=== PATIENT | male | born 1960 | race Caucasian/White ===

== ENCOUNTER 2024-11-04 09:26 | Emergency (ER) | payer OTHER, SELFPAY ==
[2024-11-04 09:40] VITALS: BP 171/80; PULSE 58; RESP 16; TEMP 36.4; O2SAT 97
--- NOTE | 2024-11-04 09:58 | ED_ITS ---
HPI - URI/Sore Throat General Chief Complaint: Upper Respiratory Infection Stated Complaint: sinus infection Time Seen by Provider: 11/04/24 09:59 Source: patient, RN notes reviewed and old records reviewed Mode of arrival: ambulatory Limitations: no limitations History of Present Illness HPI Narrative: 64 year old male who presents to [facility] care with complaints of sinus pressure, nasal drainage,some sore throat, stuffy nose, frontal headache and slight cough for about one week with increase for the past 3-4 days.. Patient reports that he had similar symptom about a month ago and did seem to get better and then symptoms seemed to reoccur. Patient reports no known fevers, chills or sweats, denies any shortness of breath,body aches, no nausea or any vomiting or diarrhea episodes, Patient has taken some Vitamin C daily. MD elicited complaint: sore throat, rhinorrhea, nasal congestion and sinus pain Onset (ago): week(s) (week with increase for past 3-4 days, symptoms also 1 month ago that seemed to get better then reoccurred.) Severity: moderate Able to tolerate fluids by mouth: Yes Treatments prior to arrival: other (Vitamin C) Related Data Home Medications ?Medication ?Instructions ?Recorded ?Confirmed ?Last Taken ?Type atorvastatin 20 mg tablet mg 11/04/24 Unknown History hydrochlorothiazide 25 mg tablet mg 11/04/24 Unknown History metoprolol succinate 100 mg mg PO 11/04/24 Unknown History tablet,extended release 24 hr olmesartan 40 mg tablet mg 11/04/24 Unknown History testosterone cypionate 200 mg/mL mg 11/04/24 Unknown History intramuscular oil Allergies Allergy/AdvReac Type Severity Reaction Status Date / Time No Known Allergies Allergy Verified 11/04/24 09:55 Review of Systems Review of Systems: CONSTITUTIONAL: Denies malaise, chills, sweats, or fever. EYES: Denies visual changes, redness, or discharge. ENT: Reports rhinorrhea, congestion, sinus pain,no otalgia and positive for sore throat. CARDIOVASCULAR: Denies chest pain, palpitations, or edema. RESPIRATORY: Reports cough.? Denies dyspnea. GASTROINTESTINAL: Denies abdominal pain, nausea, vomiting, diarrhea SKIN: Denies rash or itching. MUSCULOSKELETAL: Denies myalgia. NEUROLOGIC: Frontal headache. All systems reviewed & are unremarkable except as noted in HPI and below PMFSH Past Medical History Medical History (Updated 11/05/24 @ 09:39 by Selam Decker NP) Hyperlipidemia Hypertension Surgical History Surgical History (Updated 11/05/24 @ 09:36 by Selam Decker NP) No history of previous surgery Family History Family History (Updated 11/05/24 @ 09:36 by Selam Decker NP) Other Acute myocardial infarction Heart disease Hypertension Social History Social History (Updated 11/05/24 @ 09:36 by Selam Decker NP) Smoking status: Never smoker Alcohol intake: current Alcohol use details: social Substance use type: does not use Living arrangements: with family Gender identity (if verbalized by the patient): Male Comments At time of signature, agree with nursing past medical, surgical, social and family history. There is no relevant family history pertinent to the presenting complaint Exam Narrative: GENERAL: Well-appearing, well-nourished, and in no acute distress. HEAD: Normocephalic EYES: PERRLA, conjunctivae clear ENT: Nares clear, turbinates edematous and erythematous, clear discharge, sinus pressure, frontal headache. Mucous membranes moist. TM pearly juárez with dull light reflex bilaterally; no tragal tenderness. Oropharynx erythematous without lesions. Tonsils not enlarged and without exudate, no drooling, no hoarseness, no trismus, uvula midline.post nasal drainage NECK: Supple. No lymphadenopathy CHEST: Clear to auscultation, breath sounds equal. No wheezing, rhonchi, rales, or stridor. No respiratory distress, speaks in full sentences.dry cough, SAO2 97% on room air HEART: Regular rate and rhythm. No murmur heard. SKIN: Warm, dry, no rash. NEURO: Alert and oriented x3. PSYCH: Normal mood and affect Course Course Emergency Course: Patient is aware of diagnosis, understands and agrees to treatment plan.? Anticipatory guidance given.? Patient agrees to follow-up as directed and is aware of reasons to seek care at the emergency department. Portions of this record may have been created with voice recognition software Level of Care: Express Care Visit Vital Signs Vital signs: Vital Signs Temperature 36.4 C 11/04/24 09:40 Pulse Rate 58 L 11/04/24 09:40 Respiratory Rate 16 11/04/24 09:40 Blood Pressure 171/80 H 11/04/24 09:40 Pulse Oximetry 97 11/04/24 09:40 Oxygen Delivery Room Air 11/04/24 09:40 Temperature 36.4 C 11/04/24 09:40 Pulse Rate 58 L 11/04/24 09:40 Respiratory Rate 16 11/04/24 09:40 Blood Pressure 171/80 H 11/04/24 09:40 Pulse Oximetry 97 11/04/24 09:40 Oxygen Delivery Room Air 11/04/24 09:40 Reviewed MDM - URI/Sore Throat MDM Narrative Medical decision making narrative: Differential diagnosis considered: Dove virus, strep pharyngitis, allergic rhinitis, upper respiratory tract infection, sinusitis, rhinosinusitis, nasopharyngitis. viral pharyngitis, otitis media, otitis externa, pneumonia, bronchitis, viral cough syndrome, viral syndrome, and influenza.? Exam findings show no acute concerns or changes; patient is non-toxic appearing and is in no distress.? Patient is appropriate for outpatient treatment and follow-up. Differential Diagnosis Differential diagnosis: Likely upper respiratory infection, sinusitis, viral infection, pharyngitis and other (strep pharyngitis) Medical Records Attestation: I reviewed the patient's medical records. Lab Data Attestation: I reviewed the patient's lab results. Lab results narrative: strep screen negative no culture sent per patient request Labs: Lab Results 11/04/24 Range/Units 10:15 POC Grp A Strep Screen Negative (Negative) Critical Care Time Critical Care Time Critical Care Time: No Discharge Plan Discharge Clinical Impression: Sinusitis Qualifiers: Sinusitis location: pansinusitis Chronicity: acute Recurrence: not specified as recurrent Qualified Code(s): J01.40 - Acute pansinusitis, unspecified Patient Disposition: Home, Self-Care Condition: Stable Instructions: Antibiotic Form, Sinusitis (ED) Additional Instructions: Increase fluids especially juices and water [id number] cough and cold medicine of your choice for your symptoms Zyrtec Claritin or Latesha daily include Coricidin brand decongestant heat to the face 20-30 minutes 4-6 times a day for pain Salt water gargles, throat lozenges or throat sprays as desired Antibiotic as directed--finished the medication Tylenol or ibuprofen for any fever pain If your symptoms persist, change or worsen significantly before you can contact your personal physician then please, without delay, go to the emergency department for further evaluation. Follow-up with PCP in 7-10 days or sooner if needed Follow up with PCP soon in regards to your blood pressure which is elevated above threshold for referral. Blood pressure above 120/80 may indicate pre- hypertension. 171/80 Patient Language: Slovak Prescriptions: New amoxicillin-pot clavulanate 875-125 mg tablet 1 tablet PO Q12H Qty: 20 0RF Rx Instructions: recommend probiotic or eat activa Yogurt while taking this medication No Action atorvastatin 20 mg tablet metoprolol succinate 100 mg tablet extended release 24 hr PO hydrochlorothiazide 25 mg tablet testosterone cypionate 200 mg/mL oil olmesartan 40 mg tablet Follow-up/Referrals: Cristina,MD Emanuel [Primary Care Provider] - Time of Disposition: 10:25 Quality [place] Coma Scale Eyes: Open Verbal: Oriented and Alert Motor: Follows Commands Christopher Coma Total Score: 15
[2024-11-04 10:17] LABS: EDSTREPNEGPOS1 Negative (Negative)
--- OUTSIDE RECORDS SUMMARY | 2024-11-04 10:31 | XMS_ITS ---
Care Plan - [facility] Created on: November 04, 2024 VINAY CLARKE : 1960 Sex: Male Author Organization [facility] Address [address] [place] [address] Phone Care Team Providers Care Position Description Manager Name Role Phone ALEXA MARTINEZ MD Primary Care Provider [phone]
--- OUTSIDE RECORDS SUMMARY | 2024-11-04 10:31 | XMS_ITS | Clinical Summary ---
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 ALEXA MARTINEZ MD Active Last Documented On 03/07/2020 8:46AM ; [facility] Note: Unchanged - using cpap [facility] Reported Family History of Heart Disease 12/17/2012 ALEXA MARTINEZ MD Inactive Last Documented On 03/24/2014 4:02PM ; [facility] Note: Unchanged Reported Family History of Cancer 08/20/2012 ALEXA MARTINEZ MD Inactive Last Documented On 03/24/2014 4:02PM ; [facility] Note: Unchanged Essential Hypertension Benign 12/18/2011 ALEXA MARTINEZ MD Active Last Documented On 4 7:30AM ; [facility] Plan of Treatment Pending Tests Order Diagnosis Results Due Ordering P rovider Outside Supplies CPAP MACHINE Obstructive sle ep apnea (adult) (pediatric) 02/06/23 ALEXA MARTINEZ MD Last Documented On 3 8:35AM ; [facility] Outside Supplies CPAP SUPPLIES Obstructive sle ep apnea (adult) (pediatric) 02/06/23 ALEXA MARTINEZ MD Last Documented On 3 8:35AM ; [facility] Outside Supplies Cologuard Encounter for s creening for malignant neoplasm of colon 08/21/23 ALEXA MARTINEZ MD Last Documented On 4 1:33PM ; [facility] Lab LIPID PANEL 02/18/24 ALEXA BOWSER MD Last Documented On 4 9:26AM ; [facility] Lab CMP 02/18/24 ALEXA Wagoner MD Last Documented On 4 9:26AM ; [facility] Lab CBC WITH DIFF 02/18/24 ALEXA CHOWDHURY MD Last Documented On 4 9:26AM ; [facility] Instructions to patient Recommend diet and exercise at least 30 min three times per week Last Documented On 2 8:58AM ; [facility] Assessments Includes: Assessments from this encounter Findings - Benign essential hypertension [I10 - Essential (primary) hypertension] - Last Documented On 09/11/2021 2:36PM ; [facility] - 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 - Obstructive sleep apnea (adult) (pediatric)] - Last Documented On 09/11/2021 2:36PM ; [facility] - Hypercholesterolemia [E78.00 - Pure hypercholesterolemia, unspecified] - Last Documented On 09/11/2021 2:36PM ; [facility] - 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] - Last Documented On 09/11/2021 2:36PM ; [facility] - Male erectile disorder [F52.21 - Male erectile disorder] - Last Documented On 09/11/2021 2:36PM ; [facility] Instructions Includes: Instructions from this encounter Instructions to patient Recommend diet and exercise at least 30 min three times per week Last Documented On 8:58AM ; [facility] Medical Equipment - Implanted Devices Includes: Current Devices No Medical Equipment Recorded Medications Includes: Medications discussed during this encounter and other current Medications New / Renewed during this visit ALEXA MARTINEZ MD on 09/11/2021 Testosterone Cypionate 100 MG/ML Intramuscular Solution Provider: ALEXA CHOWDHURY MD 280 day supply: 10 mL, 0 refills Diagnosis: Essential (primary) hypertension 1/2 ml injection every 2 wee ks IM, test 1 week after the second dose given and call for instructions on dose adjustments Pharmacy: [address], [id number] - Last Documented On 09/10/2022 9:20AM By DARLIN MARTINEZ MD ; [facility] Olmesartan Medoxomil 40 MG Oral Tablet Provider: ALEXA MARTINEZ MD 90 day supply: 90 tablet, 1 refills Diagnosis: Essential (primary) hypertension One tablet daily Pharmacy: [address], [id number] - Last Documented On 04/01/2022 8:46PM By DARLIN MARTINEZ MD ; [facility] Metoprolol Succinate ER 100 MG Oral Tablet Extended Release 24 Hour Provider: ALEXA MARTINEZ MD day supply: 180 tablet, 1 refills Diagnosis: Essential (primary) hypertension 2 once a day Pharmacy: [address], [id number] - Last Documented On 03/16/2022 3:28AM By DARLIN MARTINEZ MD ; [facility] hydroCHLOROthiazide 25 MG Or al Tablet Provider: ALEXA MARTINEZ MD 90 day supply: 90 tablet, 1 refills Diagnosis: Essential (primary) hypertension One tablet daily Pharmacy: [address], [id number] - Last Documented On 04/01/2022 8:47PM By DARLIN MARTINEZ MD ; [facility] Current Medications (continue as prescribed) Tlando 112.5 MG Oral Capsule 09/06/2022 Provider: Diagnosis: 2 CAPSULES BID Last Documented On 09/10/2022 9:37AM By Ave MCKEON ; [facility] [place] Cialis 10 MG Oral Tablet 03/13/2021 Provider: DARLIN MARTINEZ MD Diagnosis: Male erectile di sorder 1 tab 30-45 min prior to raissa ired effect, max is 20 mg in 36 hour period Last Documented On 03/13/2021 9:48AM By DARLIN MARTINEZ MD ; [facility] Past Medications on file Metoprolol Succinate ER 100 MG Oral Tablet Extended Release 24 Hour 01/27/2024 - 07/25/2024 Provider: ALEXA MARTINEZ MD Diagnosis: Essential (prima ry) hypertension TAKE 2 TABLETS BY MOUTH EVERY DAY Last Documented On 01/27/2024 7:59AM By DARLIN MARTINEZ MD ; [facility] Atorvastatin Calcium 20 MG Oral Tablet 2023 - 03/24/2024 Provider: ALEXA MARTINEZ MD Diagnosis: Pure hypercholesterolemia, unspecified TAKE 1 TABLET BY MOUTH EVERY DAY Last Documented On 2023 1:53PM By DARLIN MARTINEZ MD ; [facility] hydroCHLOROthiazide 25 MG Oral Tablet 2023 - 03/24/2024 Provider: ALEXA MARTINEZ MD Diagnosis: Essential (prima ry) hypertension TAKE 1 TABLET BY MOUTH EVERY DAY Last Documented On 2023 2:09PM By DARLIN MARTINEZ MD ; [facility] Olmesartan Medoxomil 40 MG Oral Tablet 2023 - 03/24/2024 Provider: ALEXA MARTINEZ MD Diagnosis: Essential (prima ry) hypertension TAKE 1 TABLET BY MOUTH EVERY DAY Last Documented On 2023 2:09PM By DARLIN MARTINEZ MD ; [facility] Medications Administered Includes: Administered Medications from this encounter No Administered Medications Recorded Vital Signs Includes: Vital Signs from this encounter Vital Name 09/11/2021 08:33A Blood Pressure Sitting L 152/90 BP Cuff Size Large Pulse Rate-Sitting (bpm) 60 Pulse Rhythm Regular Height (in) 66 Weight (lb) 253 Body Mass Index (kg/m2) 40.8 Body Surface Area (m2) 2.2 Oxygen Saturation (%) 95 Last Documented: On 09/11/2021 8:41AM ; [facility] Results Includes: Results discussed during this encounter No Results Recorded For Specified Dates History of Present Illness Includes: History of Present Illness from this encounter KARELY CLARKE is a 60 year old male. - Allergy list reviewed - Feeling tired or little energy. - Medication reconciliation performed - Medication list reviewed - Tiring easily - Fatigue - No headache - No eye symptoms - No ear symptoms - No nasal symptoms - , and No throat symptoms - No chest pain or discomfort - and No palpitations - No dyspnea - and No cough - No heartburn - No nausea - No vomiting - No abdominal pain - No diarrhea - , and No constipation - No urinary symptoms - No skin symptoms The patient is 60years old male, presents today for checkup. He has a history of elevated testosterone level. He complains of feeling fatigue. He reports feeling energy less or tired especially during day time. He denies any family history prostate cancer. He has a history of hypertension. His blood pressure level is elevated at 152/90. He has a history of hypercholesterolemia. He has been taking Olmesartan with efficacy. His labs are discussed in detail today. He admits using C-pap religiously. Social History Description Last Updated Smoking status : Never smoker 12/30/2017 Last Documented On 2 8:32AM ; [facility] No caffeine use 07/13/2017 Last Documented On 2 8:32AM ; [facility] Not a current smoker 07/13/2017 Last Documented On 2 8:32AM ; [facility] Not using drugs 07/13/2017 Last Documented On 2 8:32AM ; [facility] Exercising erratically 02/22/2015 Last Documented On 2 8:32AM ; [facility] Not using alcohol 02/22/2015 Last Documented On 2 8:32AM ; [facility] Social history unchanged 02/22/2015 Last Documented On 2 8:32AM ; [facility] [place] Procedures and Surgical History Includes: Procedures from this encounter Procedures Code Diagnosis Performing Provider Service L ocation Service Date Reviewed & agreed to staff entries. Last Documented On 2 8:58AM ; [facility] Clinical summary provided to patient Last Documented On 2 8:58AM ; [facility] [place] Medical History Includes: Medical History addressed during this encounter Description Last Updated VASECTOMY 2000 ~BILATERAL CATARACT 2003 03/07/2020 Last Documented On 2 8:32AM ; [facility] Family History Includes: Family History addressed during this encounter Description Last Updated Daughter's history of family history of cancer BREAST CANCER 09/05/2020 Last Documented On 2 8:32AM ; [facility] Family history of heart dise ase MATERNAL SIDE HX ~ FATHER - HEART VALVE REPAIR 5 YEARS AGO. 09/07/2019 Last Documented On 2 8:32AM ; [facility] Family history of hypertension MOTHER DI ED OF STROKE 03/25/2014 Last Documented On 2 8:32AM ; [facility] Family history of cancer 05/19/2012 Last Documented On 2 8:32AM ; [facility] Review of Systems Includes: Review of Systems from this encounter Systemic: Not feeling poorly (malaise). Fatigue. No fever, no chills, and no recent weight change. Head: No headache. Eyes: No vision problems. Otolaryngeal: No earache, no nasal discharge, and no sore throat. Cardiovascular: No chest pain or discomfort and no palpitations. Pulmonary: No dyspnea, no cough, and no wheezing. Gastrointestinal: Normal appetite and no heartburn. No nausea, no vomiting, and no abdominal pain. Musculoskeletal: No muscle aches and no localized joint pain. Neurological: No dizziness. Mental Status Includes: Mental Status from this encounter Description Oriented to time, place, and person Functional Status Includes: Functional Status from this encounter No Functional Status Recorded Physical Exam Includes: Physical Exam from this encounter Immunizations Includes: Immunizations addressed during this encounter Vaccine Dose # Date Site Reaction(s) Status Source COVID-19 Moderna 3 06/26/2021 Complete (Re ported) Patient Last Documented On 2 8:33AM ; [facility] [place] Allergies Includes: Active Allergies No Known Allergies Encounters Encounter Provider Location Date Check-In Time Check-Out Time Diagnosis CHECK UP ALEXA MARTINEZ MD [facility] 09/11/19 22 8:29AM 9:31AM Essential Hypertension Benign,Hypercho lesterolemia,Ia trogenic Testicular Failure,Male Erectile Disorder,Organi c Sleep Apnea Obstructive Adult Insurance Includes: Active Insurance Policies Plan Name Member ID Group # Subscriber Relationship Effect meghan Dates 1 - [employer] [facility] [id number] VINAY CLARKE Self Clinical Notes Includes: Clinical Notes from this encounter No Clinical Notes Recorded
--- OUTSIDE RECORDS SUMMARY | 2024-11-04 10:31 | XMS_ITS ---
Author Organization [facility] Address 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 Male Erectile Disorder 03/07/2020 KARISSA MARTINEZ MD Active Last Documented On 03/07/2020 9:58PM ; [facility] Note: Unchanged Hypercholesterolemia 06/24/2017 ALEXA MARTINEZ MD Active Last Documented On 06/24/2017 10:15AM ; [facility] Note: Unchanged Organic Sleep Apnea Obstructive Adult 12/17/2012 ALEXA MARTINEZ MD Active Last Documented On 03/07/2020 8:46AM ; [facility] Note: Unchanged - using cpap [employer] Reported Family History of Heart Disease 12/17/2012 ALEXA MARTINEZ MD Inactive Last Documented On 03/24/2014 4:02PM ; [facility] Note: Unchanged Reported Family History of Cancer 08/20/2012 ALEXA MARTINEZ MD Inactive Last Documented On 03/24/2014 4:02PM ; [facility] Note: Unchanged Pure Hypercholesterolemia 12/18/2011 JEAN MARIE MARTINEZ MD Inactive Last Documented On 7 10:15AM ; [facility] Essential Hypertension Benign 12/18/2011 JULIAN MARTINEZ MD Active Last Documented On 4 7:30AM ; [facility] Plan of Treatment Findings Encounter Date fatigue malaise is more and more a problem and he inquired about low Testosterone and we also discussed a borderline tsh/free t4 in the past so will check these but also his sleep apnea is possibly an issue 6 MONTH CHECK with ALEXA MARTINEZ MD 01/19/2019 Last Documented On 9 1:04AM ; [facility] Medication refills sent to [facility] (90 day supply) 6 MONTH CHECK with ALEXA MARTINEZ MD 06/30/2018 Last Documented On 8 11:36PM ; [facility] Continue current medication 6 MONTH CHECK with Socorro MARTINEZ MD 06/30/2018 Last Documented On 8 11:36PM ; [facility] Ordered follow-up visit in s ix months with fasting labs prior to appointment 6 MONTH CHECK with ALEXA MARTINEZ MD 06/30/2018 Last Documented On 8 11:36PM ; [facility] Ordered patient to call if lee prado develops 6 MONTH CHECK with ALEXA MARTINEZ MD 12/23/2017 Last Documented On 8 2:20AM ; [facility] FOLLOW UP IN 6 MONTHS. HAVE LABS DONE IN 1 YEAR. CHECK UP with ALEXA MARTINEZ MD 06/24/2017 Last Documented On 7 11:34PM ; [facility] will check labs sometime in the near future and then will plan to see him back in 6 months for recheck. discussed him taking more time for exercise and wt loss and working on diet 6 MONTH CHECK with ALEXA MARTINEZ MD 11/19/2016 Last Documented On 7 4:34PM ; [facility] REFILL MEDS AND WILL PLAN TO SEE BACK IN 6 MONTHS WITH LABS BEFORE NEXT VISIT CHECK UP with ALEXA MARTINEZ MD 05/21/2016 Last Documented On 6 1:29AM ; [facility] PLAN [Use for s.o.a.p. note free text] 6 MONTH CHECK with ALEXA MARTINEZ MD 09/01/2015 Last Documented On 6 4:31AM ; [facility] PT IS DOING WELL. WE DISCUSS ED LABS AND SHOULD ORK ON EXERCISE AND WT LOSS. WILL ALSO SEND HIM FOR SCREENING COLONOSCOPY AND WILL PLAN FOR HIM TO COME BACK IN 6 MO. NEED TO INCREASE TOPROL TO 50 BID AND MAY CONSIDER CHANGING HIM TO SUCCINEATE AT HIS NEXT FILL INSTEAD SO HE CAN TAKE ONCE DAILY 6 MONTH CHECK with ALEXA MARTINEZ MD 02/22/2015 Last Documented On 5 8:35PM ; [facility] WILL CONTINUE WITH CURRENT M EDICATION. CONTINUE WITH EXERCISE AND DIET TO HELP WITH WT LOSS. WILL ORDER CHECK UP with ALEXA MARTINEZ MD 03/24/2014 Last Documented On 4 7:34AM ; [facility] Ordered patient to call if lee wallacem develops CHECK UP with ALEXA MARTINEZ MD 03/24/2014 Last Documented On 4 7:34AM ; [facility] 1. Low salt diet .2.daily exercise 3 MONTH CHECK with TONIO BARNES MD 12/30/2013 Last Documented On 4 4:54PM ; [facility] 1.will d/c Pindolol as it is ineffective lately and switch to Metoprolol 2. Will check fbs,A1c, cmp and psa as there is family hx of DM 3 MONTH CHECK with TONIO BARNES MD 10/01/2013 Last Documented On 4 9:40AM ; [facility] Ordered patient to call if lee prado develops 3 MONTH CHECK with TONIO BARNES MD 10/01/2013 Last Documented On 4 9:40AM ; [facility] Ordered return to the clinic if condition worsens or new symptoms arise 3 MONTH CHECK with TONIO BARNES MD 10/01/2013 Last Documented On 4 9:40AM ; [facility] Since BP is raising will inc rease his ARB dose and add a diuretic.. 2.BMP, PSA tests at [facility] 3 MONTH CHECK with TONIO BARNES MD 07/01/2013 Last Documented On 3 11:52AM ; [facility] 1. Will set up Auto Cpap for 1 month as a trial with permanency later 3 MONTH CHECK with TONIO BARNES MD 03/19/2013 Last Documented On 3 10:51AM ; [facility] Ordered patient to call if p roblem develops 3 MONTH CHECK with TONIO BARNES MD 03/19/2013 Last Documented On 3 10:51AM ; [facility] Ordered patient to call if p roblem develops 1. Recomend a colonoscopy as a screening procedure as he is 52 y.o now. 2. Recomend sleep study 3 MONTH CHECK with TONIO BARNES MD 12/17/2012 Last Documented On 3 5:31PM ; [facility] Pending Tests Order Diagnosis Results Due Ordering P rovider Outside Supplies CPAP MACHINE Obstructive sle ep apnea (adult) (pediatric) 02/06/23 ALEXA MARTINEZ MD Last Documented On 3 8:35AM ; [facility] Outside Supplies CPAP SUPPLIES Obstructive sle ep apnea (adult) (pediatric) 02/06/23 ALEXA MARTINEZ MD Last Documented On 3 8:35AM ; [facility] Outside Supplies Cologuard Encounter for s creening for malignant neoplasm of colon 08/21/23 ALEXA MARTINEZ MD Last Documented On 4 1:33PM ; [facility] Lab LIPID PANEL 02/18/24 ALEXA BOWSER MD Last Documented On 4 9:26AM ; [facility] Lab CMP 02/18/24 ALEXA Wagoner MD Last Documented On 4 9:26AM ; [facility] Lab CBC WITH DIFF 02/18/24 ALEXA CHOWDHURY MD Last Documented On 4 9:26AM ; [facility] Referrals To Diagnosis Other HYPERLIPIDEMIA N EC/NOS Last Documented On 3 7:42AM ; [facility] Other Sleep Apnea NOS Note: Pt will need Auto Cpap set up at home with pressure settings of 4-20cm water pressue for 1 month as a trial Last Documented On 3 7:48AM ; [facility] Urologist [facility] - [id number] [place] [address] - Postprocedural testicular hypofunction Note: Testicular failure and erectile dysfunction. In or around [place]. Last Documented On 4 2:15AM ; [facility] Instructions to patient Intervention and counseling on cessation of tobacco use Last Documented On 4 1:18PM ; [facility] Recommend diet and exercise at least 30 min three times per week Last Documented On 3 9:37AM ; [facility] Intervention and counseling on cessation of tobacco use Last Documented On 2 8:35AM ; [facility] Recommend diet and exercise at least 30 min three times per week Last Documented On 2 8:58AM ; [facility] Recommend diet and exercise at least 30 min three times per week Last Documented On 1 9:47AM ; [facility] Recommend diet and exercise at least 30 min three times per week Last Documented On 1 8:35AM ; [facility] Recommend diet and exercise at least 30 min three times per week Last Documented On 0 9:51PM ; [facility] Recommend diet and exercise at least 30 min three times per week Last Documented On 0 4:10AM ; [facility] Recommend diet and exercise at least 30 min three times per week Last Documented On 8 8:30AM ; [facility] Recommend diet and exercise at least 30 min three times per week Last Documented On 7 11:31PM ; [facility] Recommend diet and exercise at least 30 min three times per week Last Documented On 7 9:27AM ; [facility] Recommend diet and exercise at least 30 min three times per week Last Documented On 5 8:18PM ; [facility] Recommend diet and exercise at least 30 min three times per week Last Documented On 4 4:02PM ; [facility] Assessments Includes: Assessments for all patient encounters Findings Encounter Date Benign essential hypertension CHECK UP with LORA MARTINEZ MD 08/21/2023 Last Documented On 4 9:30AM ; [facility] Hypercholesterolemia CHECK UP with ALEXA BOWSER MD 08/21/2023 Last Documented On 4 9:30AM ; [facility] Iatrogenic testicular failure CHECK UP with LORA MARTINEZ MD 08/21/2023 Last Documented On 4 9:30AM ; [facility] Organic adult obstructive sleep apnea CHECK UP w ith ALEXA MARTINEZ MD 08/21/2023 Last Documented On 4 9:30AM ; [facility] Routine adult history and ph ysical (18-64 yrs) without abnormal findings CHECK UP with ALEXA MARTINEZ MD 08/21/2023 Last Documented On 4 9:30AM ; [facility] Benign essential hypertension CHECK UP with LORA THY Samantha MARTINEZ MD 02/06/2023 Last Documented On 3 2:09AM ; [facility] Hypercholesterolemia CHECK UP with ALEXABRI BOWSER MD 02/06/2023 Last Documented On 3 2:09AM ; [facility] Iatrogenic testicular failure CHECK UP with LORA THY Samantha MARTINEZ MD 02/06/2023 Last Documented On 3 2:09AM ; [facility] Organic adult obstructive sleep apnea CHECK UP w ith ALEXA MARTINEZ MD 02/06/2023 Last Documented On 3 2:09AM ; [facility] Benign essential hypertension CHECK UP with LORA THY Samantha MARTINEZ MD 09/10/2022 Last Documented On 3 1:50PM ; [facility] Hypercholesterolemia CHECK UP with ALEXABRI BOWSER MD 09/10/2022 Last Documented On 3 1:50PM ; [facility] Iatrogenic testicular failure CHECK UP with LORA THY Samantha MARTINEZ MD 09/10/2022 Last Documented On 3 1:50PM ; [facility] Male erectile disorder CHECK UP with ALEXA CHOWDHURY MD 09/10/2022 Last Documented On 3 1:50PM ; [facility] Organic adult obstructive sleep apnea CHECK UP w ith ALEXA MARTINEZ MD 09/10/2022 Last Documented On 3 1:50PM ; [facility] Benign essential hypertension CHECK UP with LORA THY Samantha MARTINEZ MD 03/12/2022 Last Documented On 2 12:35PM ; [facility] Hypercholesterolemia CHECK UP with ALEXA Samantha BOWSER MD 03/12/2022 Last Documented On 2 12:35PM ; [facility] Iatrogenic testicular failure CHECK UP with LOAR THY Samantha MARTINEZ MD 03/12/2022 Last Documented On 2 12:35PM ; [facility] Male erectile disorder CHECK UP with ALEXA CHOWDHURY MD 03/12/2022 Last Documented On 2 12:35PM ; [facility] Organic adult obstructive sleep apnea CHECK UP w ith ALEXA MARTINEZ MD 03/12/2022 Last Documented On 2 12:35PM ; [facility] Routine adult history and ph ysical (18-64 yrs) without abnormal findings CHECK UP with ALEXA MARTINEZ MD 03/12/2022 Last Documented On 2 12:35PM ; [facility] Benign essential hypertension CHECK UP with LORA MARTINEZ MD 09/11/2021 Last Documented On 2 2:36PM ; [facility] Hypercholesterolemia CHECK UP with ALEXA BOWSER MD 09/11/2021 Last Documented On 2 2:36PM ; [facility] Iatrogenic testicular failure CHECK UP with LORA THY Samantha MARTINEZ MD 09/11/2021 Last Documented On 2 2:36PM ; [facility] Male erectile disorder CHECK UP with ALEXA CHOWDHURY MD 09/11/2021 Last Documented On 2 2:36PM ; [facility] Organic adult obstructive sleep apnea CHECK UP w ith ALEXA MARTINEZ MD 09/11/2021 Last Documented On 2 2:36PM ; [facility] Benign essential hypertension CHECK UP with LORA THY Samantha MARTINEZ MD 03/13/2021 Last Documented On 1 6:08AM ; [facility] Hypercholesterolemia CHECK UP with ALEXA BOWSER MD 03/13/2021 Last Documented On 1 6:08AM ; [facility] Iatrogenic testicular failure CHECK UP with LORA THY Samantha MARTINEZ MD 03/13/2021 Last Documented On 1 6:08AM ; [facility] Male erectile disorder CHECK UP with ALEXA CHOWDHURY MD 03/13/2021 Last Documented On 1 6:08AM ; [facility] Organic adult obstructive sleep apnea CHECK UP w ith ALEXA MARTINEZ MD 03/13/2021 Last Documented On 1 6:08AM ; [facility] Routine adult history and ph ysical (18-64 yrs) without abnormal findings CHECK UP with ALEXA MARTINEZ MD 03/13/2021 Last Documented On 1 6:08AM ; [facility] Benign essential hypertension 6 MONTH CHECK with ALEXA MARTINEZ MD 09/05/2020 Last Documented On 1 1:12PM ; [facility] Hypercholesterolemia 6 MONTH CHECK with ALEXA MARTINEZ MD 09/05/2020 Last Documented On 1 1:12PM ; [facility] Male erectile disorder 6 MONTH CHECK with JULIAN Y Samantha MARTINEZ MD 09/05/2020 Last Documented On 1 1:12PM ; [facility] Organic adult obstructive sleep apnea 6 MONTH CHECK with ALEXA MARTINEZ MD 09/05/2020 Last Documented On 1 1:12PM ; [facility] Benign essential hypertension 6 MONTH CHECK with ALEXA MARTINEZ MD 03/07/2020 Last Documented On 0 9:59PM ; [facility] Hypercholesterolemia 6 MONTH CHECK with ALEXA MARTINEZ MD 03/07/2020 Last Documented On 0 9:59PM ; [facility] Male erectile disorder 6 MONTH CHECK with JULIAN Y Samantha MARTINEZ MD 03/07/2020 Last Documented On 0 9:59PM ; [facility] Organic adult obstructive sleep apnea 6 MONTH CHECK with ALEXA MARTINEZ MD 03/07/2020 Last Documented On 0 9:59PM ; [facility] Routine adult history and ph ysical (18-64 yrs) without abnormal findings 6 MONTH CHECK with ALEXA MARTINEZ MD 03/07/2020 Last Documented On 0 9:59PM ; [facility] Benign essential hypertension 6 MONTH CHECK with ALEXA MARTINEZ MD 09/07/2019 Last Documented On 0 4:12AM ; [facility] Hypercholesterolemia 6 MONTH CHECK with ALEXA MARTINEZ MD 09/07/2019 Last Documented On 0 4:12AM ; [facility] Malaise and fatigue 6 MONTH CHECK with ALEXA MARTINEZ MD 09/07/2019 Last Documented On 0 4:12AM ; [facility] Organic adult obstructive sleep apnea 6 MONTH CHECK with ALEXA MARTINEZ MD 09/07/2019 Last Documented On 0 4:12AM ; [facility] Benign essential hypertension 6 MONTH CHECK with LAEXA MARTINEZ MD 01/19/2019 Last Documented On 9 1:04AM ; [facility] Hypercholesterolemia 6 MONTH CHECK with ALEXA MARTINEZ MD 01/19/2019 Last Documented On 9 1:04AM ; [facility] Malaise and fatigue 6 MONTH CHECK with ALEXA MARTINEZ MD 01/19/2019 Last Documented On 9 1:04AM ; [facility] Organic adult obstructive sleep apnea 6 MONTH CHECK with ALEXA MARTINEZ MD 01/19/2019 Last Documented On 9 1:04AM ; [facility] Benign essential hypertension 6 MONTH CHECK with ALEXA MARTINEZ MD 06/30/2018 Last Documented On 8 11:36PM ; [facility] Hypercholesterolemia 6 MONTH CHECK with ALEXA MARTINEZ MD 06/30/2018 Last Documented On 8 11:36PM ; [facility] Organic adult obstructive sleep apnea 6 MONTH CHECK with ALEXA MARTINEZ MD 06/30/2018 Last Documented On 8 11:36PM ; [facility] Routine adult history and ph ysical (18-64 yrs) without abnormal findings 6 MONTH CHECK with ALEXA MARTINEZ MD 06/30/2018 Last Documented On 8 11:36PM ; [facility] Benign essential hypertension 6 MONTH CHECK with ALEXA MARTINEZ MD 12/23/2017 Last Documented On 8 2:20AM ; [facility] Hypercholesterolemia 6 MONTH CHECK with ALEXA MARTINEZ MD 12/23/2017 Last Documented On 8 2:20AM ; [facility] Organic adult obstructive sleep apnea 6 MONTH CHECK with ALEXA MARTINEZ MD 12/23/2017 Last Documented On 8 2:20AM ; [facility] Benign essential hypertension CHECK UP with LORA MARTINEZ MD 06/24/2017 Last Documented On 7 11:34PM ; [facility] Hypercholesterolemia CHECK UP with ALEXA BOWSER MD 06/24/2017 Last Documented On 7 11:34PM ; [facility] Organic adult obstructive sleep apnea CHECK UP w ith ALEXA MARTINEZ MD 06/24/2017 Last Documented On 7 11:34PM ; [facility] Benign essential hypertension 6 MONTH CHECK with ALEXA MARTINEZ MD 11/19/2016 Last Documented On 7 4:34PM ; [facility] Hypercholesterolemia 6 MONTH CHECK with ALEXA MARTNIEZ MD 11/19/2016 Last Documented On 7 4:34PM ; [facility] Organic adult obstructive sleep apnea 6 MONTH CHECK with ALEXA MARTINEZ MD 11/19/2016 Last Documented On 7 4:34PM ; [facility] Benign essential hypertension CHECK UP with LORA MARTINEZ MD 05/21/2016 Last Documented On 6 1:29AM ; [facility] Organic adult obstructive sleep apnea CHECK UP w ith ALEXA MARTINEZ MD 05/21/2016 Last Documented On 6 1:29AM ; [facility] Pure hypercholesterolemia CHECK UP with ALEXA MARTINEZ MD 05/21/2016 Last Documented On 6 1:29AM ; [facility] Routine adult history and ph ysical (18-64 yrs) without abnormal findings CHECK UP with ALEXA MARTINEZ MD 05/21/2016 Last Documented On 6 1:29AM ; [facility] Benign essential hypertension 6 MONTH CHECK with ALEXA MARTINEZ MD 09/01/2015 Last Documented On 6 4:31AM ; [facility] Hypercholesterolemia 6 MONTH CHECK with ALEXA MARTINEZ MD 09/01/2015 Last Documented On 6 4:31AM ; [facility] Organic adult obstructive sleep apnea 6 MONTH CHECK with ALEXA MARTINEZ MD 09/01/2015 Last Documented On 6 4:31AM ; [facility] Benign essential hypertension 6 MONTH CHECK with ALEXA MARTINEZ MD 02/22/2015 Last Documented On 5 8:35PM ; [facility] Colon screening 6 MONTH CHECK with ALEXA BOWSER MD 02/22/2015 Last Documented On 5 8:35PM ; [facility] Hypercholesterolemia 6 MONTH CHECK with ALEXA MARTINEZ MD 02/22/2015 Last Documented On 5 8:35PM ; [facility] Normal routine history and p hysical adult 6 MONTH CHECK with ALEXA MARTINEZ MD 02/22/2015 Last Documented On 5 8:35PM ; [facility] Organic adult obstructive sleep apnea 6 MONTH CHECK with ALEXA MARTINEZ MD 02/22/2015 Last Documented On 5 8:35PM ; [facility] Benign essential hypertension CHECK UP with LORA MARTINEZ MD 03/24/2014 Last Documented On 4 7:34AM ; [facility] Hypercholesterolemia CHECK UP with ALEXA BOWSER MD 03/24/2014 Last Documented On 4 7:34AM ; [facility] Sleep apnea CHECK UP with ALEXA MARTINEZ MD 03/24/2014 Last Documented On 4 7:34AM ; [facility] Essential hypertension 3 MONTH CHECK with ALPESH BARNES MD 12/30/2013 Last Documented On 4 4:54PM ; [facility] Hyperlipidemia 3 MONTH CHECK with TONIO VALDEZ MD 12/30/2013 Last Documented On 4 4:54PM ; [facility] Sleep apnea 3 MONTH CHECK with TONIO VALDEZ MD 12/30/2013 Last Documented On 4 4:54PM ; [facility] Essential hypertension 3 MONTH CHECK with ALPESH BARNES MD 10/01/2013 Last Documented On 4 9:40AM ; [facility] Hyperlipidemia 3 MONTH CHECK with TONIO VALDEZ MD 10/01/2013 Last Documented On 4 9:40AM ; [facility] Essential hypertension 3 MONTH CHECK with ALPESH BARNES MD 07/01/2013 Last Documented On 3 11:52AM ; [facility] Hyperlipidemia 3 MONTH CHECK with TONIO VALDEZ MD 07/01/2013 Last Documented On 3 11:52AM ; [facility] Sleep apnea 3 MONTH CHECK with TONIO VLADEZ MD 07/01/2013 Last Documented On 3 11:52AM ; [facility] Essential hypertension 3 MONTH CHECK with ALPESH BARNES MD 03/19/2013 Last Documented On 3 10:51AM ; [facility] Hyperlipidemia 3 MONTH CHECK with TONIO VALDEZ MD 03/19/2013 Last Documented On 3 10:51AM ; [facility] Sleep apnea 3 MONTH CHECK with TONIO VALDEZ MD 03/19/2013 Last Documented On 3 10:51AM ; [facility] Essential hypertension 3 MONTH CHECK with ALPESH BARNES MD 12/17/2012 Last Documented On 3 5:31PM ; [facility] Hyperlipidemia 3 MONTH CHECK with TONIO VALDEZ MD 12/17/2012 Last Documented On 3 5:31PM ; [facility] Sleep apnea r/o sleep apnoea due to the sx 3 MONTH CHECK with TONIO BARNES MD 12/17/2012 Last Documented On 3 5:31PM ; [facility] Essential hypertension 3 MONTH CHECK with ALPESH BARNES MD 08/20/2012 Last Documented On 3 1:04PM ; [facility] Hyperlipidemia 3 MONTH CHECK with TONIO VALDEZ MD 08/20/2012 Last Documented On 3 1:04PM ; [facility] Essential hypertension NEW PATIENT VISIT with SR EMELY BARNES MD 05/19/2012 Last Documented On 2 4:48PM ; [facility] Hyperlipidemia NEW PATIENT VISIT with TONIO BARNES MD 05/19/2012 Last Documented On 2 4:48PM ; [facility] Lumbago NEW PATIENT VISIT with TONIO BARNES MD 05/19/2012 Last Documented On 2 4:48PM ; [facility] Instructions Includes: Instructions for all patient encounters Instructions to patient Intervention and counseling on cessation of tobacco use Last Documented On 4 1:18PM ; [facility] Recommend diet and exercise at least 30 min three times per week Last Documented On 3 9:37AM ; [facility] Intervention and counseling on cessation of tobacco use Last Documented On 2 8:35AM ; [facility] Recommend diet and exercise at least 30 min three times per week Last Documented On 2 8:58AM ; [facility] Recommend diet and exercise at least 30 min three times per week Last Documented On 1 9:47AM ; [facility] Recommend diet and exercise at least 30 min three times per week Last Documented On 1 8:35AM ; [facility] Recommend diet and exercise at least 30 min three times per week Last Documented On 0 9:51PM ; [facility] Recommend diet and exercise at least 30 min three times per week Last Documented On 0 4:10AM ; [facility] Recommend diet and exercise at least 30 min three times per week Last Documented On 8 8:30AM ; [facility] Recommend diet and exercise at least 30 min three times per week Last Documented On 7 11:31PM ; [facility] Recommend diet and exercise at least 30 min three times per week Last Documented On 7 9:27AM ; [facility] Recommend diet and exercise at least 30 min three times per week Last Documented On 5 8:18PM ; [facility] Recommend diet and exercise at least 30 min three times per week Last Documented On 4 4:02PM ; [facility] Medical Equipment - Implanted Devices Includes: Current and historical Devices No Medical Equipment Recorded Medications Includes: Current and historical Medications Current Medications (continue as prescribed) Tlando 112.5 MG Oral Capsule 09/06/2022 Provider: Diagnosis: 2 CAPSULES BID Last Documented On 09/10/2022 9:37AM By Ave [address]KE[address] ; [facility] Cialis 10 MG Oral Tablet 03/13/2021 Provider: DARLIN MARTINEZ MD Diagnosis: Male erectile di sorder 1 tab 30-45 min prior to raissa ired effect, max is 20 mg in 36 hour period Last Documented On 03/13/2021 9:48AM By DARLIN MARTINEZ MD ; [facility] Past Medications on file Metoprolol Succinate ER 100 MG Oral Tablet Extended Release 24 Hour 01/27/2024 - 07/25/2024 Provider: ALEXA MARTINEZ MD Diagnosis: Essential (prima ry) hypertension TAKE 2 TABLETS BY MOUTH EVERY DAY Last Documented On 01/27/2024 7:59AM By DARLIN MARTINEZ MD ; [facility] Atorvastatin Calcium 20 MG Oral Tablet 2023 - 03/24/2024 Provider: ALEXA MARTINEZ MD Diagnosis: Pure hypercholesterolemia, unspecified TAKE 1 TABLET BY MOUTH EVERY DAY Last Documented On 2023 1:53PM By DARLIN MARTINEZ MD ; [facility] hydroCHLOROthiazide 25 MG Oral Tablet 2023 - 03/24/2024 Provider: ALEXA MARTINEZ MD Diagnosis: Essential (prima ry) hypertension TAKE 1 TABLET BY MOUTH EVERY DAY Last Documented On 2023 2:09PM By DARLIN MARTINEZ MD ; [facility] Olmesartan Medoxomil 40 MG Oral Tablet 2023 - 03/24/2024 Provider: ALEXA MARTINEZ MD Diagnosis: Essential (prima ry) hypertension TAKE 1 TABLET BY MOUTH EVERY DAY Last Documented On 2023 2:09PM By DARLIN MARTINEZ MD ; [facility] Metoprolol Succinate ER 100 MG Oral Tablet Extended Release 24 Hour 07/28/2023 - 01/27/2024 Provider: ALEXA MARTINEZ MD Diagnosis: Essential (prima ry) hypertension TAKE 2 TABLETS BY MOUTH EVERY DAY Last Documented On 01/27/2024 7:57AM By DARLIN MARTINEZ MD ; [facility] Olmesartan Medoxomil 40 MG Oral Tablet 04/01/2023 - 2023 Provider: ALEXA MARTINEZ MD Diagnosis: Essential (prima ry) hypertension TAKE 1 TABLET BY MOUTH EVERY DAY Last Documented On 2023 1:54PM By DARLIN MARTINEZ MD ; [facility] hydroCHLOROthiazide 25 MG Oral Tablet 04/01/2023 - 2023 Provider: ALEXA MARTINEZ MD Diagnosis: Essential (prima ry) hypertension TAKE 1 TABLET BY MOUTH EVERY DAY Last Documented On 2023 1:54PM By DARLIN MARTINEZ MD ; [facility] Atorvastatin Calcium 20 MG Oral Tablet 03/10/2023 - 2023 Provider: ALEXA MARTINEZ MD Diagnosis: Pure hypercholesterolemia, unspecified TAKE 1 TABLET BY MOUTH EVERY DAY Last Documented On 2023 1:51PM By DARLIN MARTINEZ MD ; [facility] Metoprolol Succinate ER 100 MG Oral Tablet Extended Release 24 Hour 03/10/2023 - 07/28/2023 Provider: ALXEA MARTINEZ MD Diagnosis: Essential (prima ry) hypertension TAKE 2 TABLETS BY MOUTH EVERY DAY Last Documented On 07/28/2023 11:36PM By DARLIN MARTINEZ MD ; [facility] Atorvastatin Calcium 20 MG Oral Tablet 12/01/2022 - 03/10/2023 Provider: ALEXA MARTINEZ MD Diagnosis: Pure hypercholesterolemia, unspecified TAKE 1 TABLET BY MOUTH EVERY DAY Last Documented On 03/10/2023 8:54PM By DARLIN MARTINEZ MD ; [facility] Olmesartan Medoxomil 40 MG Oral Tablet 10/03/2022 - 04/01/2023 Provider: ALEXA MARTINEZ MD Diagnosis: Essential (prima ry) hypertension TAKE 1 TABLET BY MOUTH EVERY DAY Last Documented On 04/01/2023 1:52AM By DARLIN MARTINEZ MD ; [facility] hydroCHLOROthiazide 25 MG Oral Tablet 10/03/2022 - 04/01/2023 Provider: ALEXA MARTINEZ MD Diagnosis: Essential (prima ry) hypertension TAKE 1 TABLET BY MOUTH EVERY DAY Last Documented On 04/01/2023 1:52AM By DARLIN MARTINEZ MD ; [facility] Metoprolol Succinate ER 100 MG Oral Tablet Extended Release 24 Hour 09/16/2022 - 03/10/2023 Provider: ALEXA MARTINEZ MD Diagnosis: Essential (prima ry) hypertension TAKE 2 TABLETS BY MOUTH EVERY DAY Last Documented On 03/10/2023 8:54PM By DARLIN MARTINEZ MD ; [facility] Atorvastatin Calcium 20 MG Oral Tablet 06/29/2022 - 02/06/2023 Provider: ALEXA MARTINEZ MD Diagnosis: Pure hypercholesterolemia, unspecified TAKE 1 TABLET BY MOUTH EVERY DAY Last Documented On 02/06/2023 1:03PM By Ave [facility]KEON ; [facility] hydroCHLOROthiazide 25 MG Oral Tablet 04/01/2022 - 10/03/2022 Provider: ALEXA MARTINEZ MD Diagnosis: Essential (prima ry) hypertension TAKE 1 TABLET BY MOUTH EVERY DAY Last Documented On 10/03/2022 1:49AM By DARLIN MARTINEZ MD ; [facility] Olmesartan Medoxomil 40 MG Oral Tablet 04/01/2022 - 10/03/2022 Provider: ALEXA MARTINEZ MD Diagnosis: Essential (prima ry) hypertension TAKE 1 TABLET BY MOUTH EVERY DAY Last Documented On 10/03/2022 1:49AM By DARLIN MARTINEZ MD ; [facility] Metoprolol Succinate ER 100 MG Oral Tablet Extended Release 24 Hour 03/16/2022 - 09/16/2022 Provider: ALEXA MARTINEZ MD Diagnosis: Essential (prima ry) hypertension TAKE 2 TABLETS BY MOUTH EVERY DAY Last Documented On 09/16/2022 5:05PM By DARLIN MARTINEZ MD ; [facility] Atorvastatin Calcium 20 MG Oral Tablet 01/01/2022 - 06/29/2022 Provider: ALEXA MARTINEZ MD Diagnosis: Pure hypercholesterolemia, unspecified TAKE 1 TABLET BY MOUTH EVERY DAY Last Documented On 06/29/2022 4:48AM By DARLIN MARTINEZ MD ; [facility] Testosterone Cypionate 100 MG/ML Intramuscular Solution 09/11/2021 - 09/10/2022 Provider: ALEXA MARTINEZ MD Diagnosis: Essential (prima ry) hypertension 1/2 ml injection every 2 wee ks IM, test 1 week after the second dose given and call for instructions on dose adjustments Last Documented On 09/10/2022 9:20AM By DARLIN MARTINEZ MD ; [facility] Olmesartan Medoxomil 40 MG Oral Tablet 09/11/2021 - 04/01/2022 Provider: ALEXA MARTINEZ MD Diagnosis: Essential (prima ry) hypertension One tablet daily Last Documented On 04/01/2022 8:46PM By DARLIN MARTINEZ MD ; [facility] Metoprolol Succinate ER 100 MG Oral Tablet Extended Release 24 Hour 09/11/2021 - 03/16/2022 Provider: ALEXA MARTINEZ MD Diagnosis: Essential (prima ry) hypertension 2 once a day Last Documented On 03/16/2022 3:28AM By DARLIN MARTINEZ MD ; [facility] hydroCHLOROthiazide 25 MG Oral Tablet 09/11/2021 - 04/01/2022 Provider: ALEXA MARTINEZ MD Diagnosis: Essential (prima ry) hypertension One tablet daily Last Documented On 04/01/2022 8:47PM By DARLIN MARTINEZ MD ; [facility] Atorvastatin Calcium 20 MG Oral Tablet 07/04/2021 - 01/01/2022 Provider: ALEXA MARTINEZ MD Diagnosis: Pure hypercholesterolemia, unspecified TAKE 1 TABLET BY MOUTH EVERY DAY Last Documented On 01/01/2022 9:24AM By [facility] ; [facility] hydroCHLOROthiazide 25 MG Oral Tablet 04/11/2021 - 09/11/2021 Provider: ALEXA MARTINEZ MD Diagnosis: Essential (prima ry) hypertension One tablet daily Last Documented On 09/11/2021 8:39AM By [facility] ; [facility] Olmesartan Medoxomil 40 MG Oral Tablet 04/11/2021 - 09/11/2021 Provider: ALEXA MARTINEZ MD Diagnosis: Essential (prima ry) hypertension One tablet daily Last Documented On 09/11/2021 8:40AM By [facility] ; [facility] Metoprolol Succinate ER 100 MG Oral Tablet Extended Release 24 Hour 03/13/2021 - 09/11/2021 Provider: ALEXA MARTINEZ MD Diagnosis: Essential (prima ry) hypertension 2 once a day Last Documented On 09/11/2021 8:39AM By [facility] ; [facility] Atorvastatin Calcium 20 MG Oral Tablet 01/05/2021 - 07/04/2021 Provider: ALEXA MARTINEZ MD Diagnosis: Pure hypercholesterolemia, unspecified TAKE ONE TABLET BY MOUTH DAILY Last Documented On 07/04/2021 11:23PM By DARLIN MARTINEZ MD ; [facility] Metoprolol Succinate ER 100 MG Oral Tablet Extended Release 24 Hour 09/05/2020 - 03/13/2021 Provider: ALEXA MARTINEZ MD Diagnosis: Essential (prima ry) hypertension TAKE 1 & 1/2 TABLETS BY MOUTH DAILY Last Documented On 03/13/2021 9:48AM By DARLIN MARTINEZ MD ; [facility] Olmesartan Medoxomil 40 MG Oral Tablet 09/05/2020 - 03/13/2021 Provider: ALEXA MARTINEZ MD Diagnosis: Essential (prima ry) hypertension One tablet daily Last Documented On 04/11/2021 3:20PM By Ave [facility]KE[facility] ; [facility] Cialis 10 MG Oral Tablet 09/05/2020 - 03/13/2021 Provider: ALEXA MARTINEZ MD Diagnosis: Male erectile di sorder 1 tab 30-45 min prior to raissa ired effect, max is 20 mg in 36 hour period Last Documented On 03/13/2021 9:47AM By DARLIN MARTINEZ MD ; [facility] hydroCHLOROthiazide 25 MG Oral Tablet 09/05/2020 - 03/13/2021 Provider: ALEXA MARTINEZ MD Diagnosis: Essential (prima ry) hypertension One tablet daily Last Documented On 04/11/2021 3:20PM By Ave [facility]KE[facility] ; [facility] Metoprolol Succinate ER 100 MG Oral Tablet Extended Release 24 Hour 07/18/2020 - 09/05/2020 Provider: ALEXA MARTINEZ MD Diagnosis: Essential (prima ry) hypertension TAKE 1 & 1/2 TABLETS BY MOUTH DAILY Last Documented On 09/05/2020 8:49AM By DARLIN MARTINEZ MD ; [facility] Atorvastatin Calcium 20 MG Oral Tablet 06/27/2020 - 01/05/2021 Provider: ALEXA MARTINEZ MD Diagnosis: Pure hypercholesterolemia, unspecified One tablet daily Last Documented On 01/05/2021 12:59AM By DARLIN MARTINEZ MD ; [facility] Olmesartan Medoxomil 40 MG Oral Tablet 04/18/2020 - 09/05/2020 Provider: ALEXA MARTINEZ MD Diagnosis: Essential (prima ry) hypertension One tablet daily Last Documented On 09/05/2020 8:49AM By DARLIN MARTINEZ MD ; [facility] Olmesartan Medoxomil 40 MG Oral Tablet 03/21/2020 - 04/18/2020 Provider: ALEXA MARTINEZ MD Diagnosis: Essential (prima ry) hypertension One tablet daily Last Documented On 04/18/2020 11:14PM By DARLIN MARTINEZ MD ; [facility] hydroCHLOROthiazide 25 MG Oral Tablet 03/21/2020 - 09/05/2020 Provider: ALEXA MARTINEZ MD Diagnosis: Essential (prima ry) hypertension One tablet daily Last Documented On 09/05/2020 8:49AM By DARLIN MARTINEZ MD ; [facility] Cialis 10 MG Oral Tablet 03/07/2020 - 09/05/2020 Provider: ALEXA MARTINEZ MD Diagnosis: Male erectile di sorder 1 tab 30-45 min prior to raissa ired effect, max is 20 mg in 36 hour period Last Documented On 09/05/2020 8:48AM By DARLIN MARTINEZ MD ; [facility] Metoprolol Succinate ER 100 MG Oral Tablet Extended Release 24 Hour 01/12/2020 - 07/18/2020 Provider: ALEXA MARTINEZ MD Diagnosis: Essential (prima ry) hypertension TAKE 1 & 1/2 TABLETS BY MOUTH DAILY Last Documented On 07/18/2020 1:18PM By DARLIN MARTINEZ MD ; [facility] Olmesartan Medoxomil-HCTZ 40-25 MG Oral Tablet 12/16/2019 - 03/21/2020 Provider: ALEXA MARTINEZ MD Diagnosis: Essential (prima ry) hypertension One tablet daily Last Documented On 03/21/2020 4:00PM By DARLIN MARTINEZ MD ; [facility] Lipitor 20 MG Oral Tablet 09/19/2019 - 09/05/2020 Provider: ALEXA MARTINEZ MD Diagnosis: Pure hypercholesterolemia, unspecified T1T PO DA Last Documented On 09/05/2020 8:21AM By [address] [facility] ; [facility] Olmesartan Medoxomil-HCTZ 40-25 MG Oral Tablet 09/07/2019 - 12/16/2019 Provider: ALEXA MARTINEZ MD Diagnosis: Essential (prima ry) hypertension One tablet daily Last Documented On 12/16/2019 7:54PM By DARLIN MARTINEZ MD ; [facility] Metoprolol Succinate ER 100 MG Oral Tablet Extended Release 24 Hour 07/07/2019 - 01/12/2020 Provider: ALEXA MARTINEZ MD Diagnosis: Essential (prima ry) hypertension 1 and a half tab po once daily Last Documented On 01/12/2020 12:28PM By DARLIN MARTINEZ MD ; [facility] Losartan Potassium-HCTZ 100-25MG Oral Tablet 04/04/2019 - 09/07/2019 Provider: ALEXA MARTINEZ MD Diagnosis: Essential (prima ry) hypertension TAKE ONE TABLET BY MOUTH DAILY Last Documented On 09/07/2019 8:59AM By DARLIN MARTINEZ MD ; [facility] Metoprolol Succinate ER 100MG Oral Tablet Extended Release 24 Hour 01/01/2019 - 07/07/2019 Provider: ALEXA MARTINEZ MD Diagnosis: Essential (prima ry) hypertension 1 and a half tab po once daily Last Documented On 07/07/2019 10:52AM By Ave [facility]KE[facility] ; [facility] Lipitor 20MG Oral Tablet 12/15/2018 - 09/19/2019 Provider: ALEXA MARTINEZ MD Diagnosis: Pure hypercholesterolemia, unspecified TAKE ONE TABLET BY MOUTH DAILY Last Documented On 09/19/2019 6:28PM By DARLIN MARTINEZ MD ; [facility] Metoprolol Succinate ER 100MG Oral Tablet, extended-release 24 hour 06/30/2018 - 01/01/2019 Provider: ALEXA MARTINEZ MD Diagnosis: Essential (prima ry) hypertension 1 and a half tab po once daily Last Documented On 01/01/2019 12:23PM By DARLIN MARTINEZ MD ; [facility] Lipitor 20MG Oral Tablet 06/30/2018 - 12/15/2018 Provider: ALEXA MARTINEZ MD Diagnosis: Pure hypercholesterolemia, unspecified One tablet daily Last Documented On 12/15/2018 12:18PM By DARLIN MARTINEZ MD ; [facility] Losartan Potassium-HCTZ 100-25MG Oral Tablet 06/30/2018 - 04/04/2019 Provider: ALEXA MARTINEZ MD Diagnosis: Essential (prima ry) hypertension One tablet daily Last Documented On 04/04/2019 11:15PM By DARLIN MARTINEZ MD ; [facility] Lipitor 20MG Oral Tablet 12/23/2017 - 06/30/2018 Provider: ALEXA MARTINEZ MD Diagnosis: Pure hypercholesterolemia, unspecified One tablet daily Last Documented On 06/30/2018 8:46AM By DARLIN MARTINEZ MD ; [facility] Losartan Potassium-HCTZ 100-25MG Oral Tablet 12/23/2017 - 06/30/2018 Provider: ALEXA MARTINEZ MD Diagnosis: Essential (prima ry) hypertension One tablet daily Last Documented On 06/30/2018 8:46AM By DARLIN MARTINEZ MD ; [facility] Metoprolol Succinate ER 100MG Oral Tablet Extended Release 24 Hour 12/23/2017 - 06/30/2018 Provider: ALEXA MARTINEZ MD Diagnosis: Essential (prima ry) hypertension 1 and a half tab po once daily Last Documented On 06/30/2018 8:46AM By DARLIN MARTINEZ MD ; [facility] Losartan Potassium-HCTZ 100-25MG Oral Tablet 06/24/2017 - 12/23/2017 Provider: ALEXA MARTINEZ MD Diagnosis: Essential (prima ry) hypertension One tablet daily Last Documented On 12/23/2017 10:48AM By JERAD REBOLLEDO Ana ; [facility] Metoprolol Succinate ER 100MG Oral Tablet Extended Release 24 Hour 06/24/2017 - 12/23/2017 Provider: ALEXA MARTINEZ MD Diagnosis: Essential (prima ry) hypertension 1 and a half tab po once daily Last Documented On 12/23/2017 10:49AM By JERAD MCKEON ; [facility] Lipitor 20MG Oral Tablet 06/24/2017 - 12/23/2017 Provider: ALEXA MARTINEZ MD Diagnosis: Pure hypercholesterolemia, unspecified One tablet daily Last Documented On 12/23/2017 10:48AM By JERAD MCKEON ; [facility] Losartan Potassium-HCTZ 100-25MG Oral Tablet 02/20/2017 - 06/24/2017 Provider: ALEXA MARTINEZ MD Diagnosis: Essential (prima ry) hypertension One tablet daily Last Documented On 06/24/2017 10:15AM By DARLIN MARTINEZ MD ; [facility] Losartan Potassium-HCTZ 100-25MG Oral Tablet 11/19/2016 - 02/20/2017 Provider: ALEXA MARTINEZ MD Diagnosis: Essential (prima ry) hypertension One tablet daily Last Documented On 02/20/2017 3:38PM By DARLIN MARTINEZ MD ; [facility] Lipitor 20MG Oral Tablet 11/19/2016 - 06/24/2017 Provider: ALEXA MARTINEZ MD Diagnosis: Pure hypercholes terolemia One tablet daily Last Documented On 06/24/2017 10:15AM By DARLIN MARTINEZ MD ; [facility] Metoprolol Succinate ER 100MG Oral Tablet Extended Release 24 Hour 11/19/2016 - 06/24/2017 Provider: ALEXA MARTINEZ MD Diagnosis: Essential (prima ry) hypertension 1 and a half tab po once daily Last Documented On 06/24/2017 10:15AM By DARLIN MARTINEZ MD ; [facility] Metoprolol Succinate ER 100 MG Tablet Extended Release 24 Hour 05/21/2016 - 11/19/2016 Provider: ALEXA MARTINEZ MD Diagnosis: Essential (prima ry) hypertension One tablet daily Last Documented On 11/19/2016 9:39AM By DARLIN MARTINEZ MD ; [facility] Lipitor 20 MG Tablet 05/21/2016 - 11/19/2016 Provider: ALEXA MARTINEZ MD Diagnosis: Pure hypercholes terolemia One tablet daily Last Documented On 11/19/2016 9:39AM By DARLIN MARTINEZ MD ; [facility] Losartan Potassium-HCTZ 100-25 MG Tablet 05/21/2016 - 11/19/2016 Provider: ALEXA MARTINEZ MD Diagnosis: Essential (prima ry) hypertension One tablet daily Last Documented On 11/19/2016 9:39AM By DARLIN MARTINEZ MD ; [facility] Metoprolol Succinate ER 100 MG Tablet, extended-release 24 hour 09/01/2015 - 05/21/2016 Provider: ALEXA MARTINEZ MD Diagnosis: Essential (prima ry) hypertension One tablet daily Last Documented On 05/21/2016 9:42AM By DARLIN MARTINEZ MD ; [facility] Lipitor 20 MG Tablet 09/01/2015 - 05/21/2016 Provider: ALEXA MARTINEZ MD Diagnosis: Pure hypercholes terolemia One tablet daily Last Documented On 05/21/2016 9:42AM By DARLIN MARTINEZ MD ; [facility] Losartan Potassium-HCTZ 100-25 MG Tablet 09/01/2015 - 05/21/2016 Provider: ALEXA MARTINEZ MD Diagnosis: Essential (prima ry) hypertension One tablet daily Last Documented On 05/21/2016 9:42AM By DARLIN MARTINEZ MD ; [facility] Losartan Potassium-HCTZ 100-25 MG Tablet 02/22/2015 - 09/01/2015 Provider: ALEXA MARTINEZ MD Diagnosis: BENIGN HYPERTENS ION One tablet daily Last Documented On 09/01/2015 4:57PM By DARLIN MARTINEZ MD ; [facility] Lipitor 20 MG Tablet 02/22/2015 - 09/01/2015 Provider: ALEXA MARTINEZ MD Diagnosis: PURE HYPERCHOLES TEROLEM One tablet daily Last Documented On 09/01/2015 4:57PM By DARLIN MARTINEZ MD ; [facility] Metoprolol Succinate ER 100 MG Tablet, extended-release 24 hour 02/22/2015 - 09/01/2015 Provider: ALEXA MARTINEZ MD Diagnosis: BENIGN HYPERTENS ION One tablet daily REPLACE TAR TRATE WITH SUCCINATE AT NEXT FILL, DC ALL THE TARTRATE REFILLS ON FILE AND THIS IS DOSE INCREASE TOO Last Documented On 09/01/2015 4:57PM By DARLIN MARTINEZ MD ; [facility] Losartan Potassium-HCTZ 100-25 MG Tablet 12/31/2014 - 02/22/2015 Provider: ALEXA MARTINEZ MD Diagnosis: HYPERTENSION NOS One tablet daily 1 tab po q am Last Documented On 02/22/2015 8:31PM By DARLIN MARTINEZ MD ; [facility] Lipitor 20 MG Tablet 12/28/2014 - 02/22/2015 Provider: ALEXA MARTINEZ MD Diagnosis: HYPERLIPIDEMIA N EC/NOS One tablet daily Last Documented On 02/22/2015 8:31PM By DARLIN MARTINEZ MD ; [facility] Metoprolol Tartrate 50 MG Tablet 12/28/2014 - 02/22/2015 Provider: ALEXA MARTINEZ MD Diagnosis: HYPERTENSION NOS One tablet daily 1 tab po daily Last Documented On 02/22/2015 8:29PM By DARLIN MARTINEZ MD ; [facility] Lipitor 20 MG OR TABS 07/20/2014 - 12/28/2014 Provider: ALEXA MARTINEZ MD Diagnosis: HYPERLIPIDEMIA N EC/NOS Last Documented On 12/28/2014 4:34PM By DARLIN MARTINEZ MD ; [facility] Losartan Potassium-HCTZ 100-25 MG OR TABS 07/20/2014 - 12/31/2014 Provider: ALEXA MARTINEZ MD Diagnosis: HYPERTENSION NOS 1 tab po q am Last Documented On 12/31/2014 8:44AM By DARLIN MARTINEZ MD ; [facility] Metoprolol Tartrate 50 MG OR TABS 07/20/2014 - 12/28/2014 Provider: ALEXA MARTINEZ MD Diagnosis: HYPERTENSION NOS 1 tab po daily Last Documented On 12/28/2014 1:10PM By DARLIN MARTINEZ MD ; [facility] Lipitor 20 MG OR TABS 12/30/2013 - 07/20/2014 Provider: TONIO Perez MD Diagnosis: HYPERLIPIDEMIA N EC/NOS Last Documented On 07/20/2014 12:45PM By DARLIN MARTINEZ MD ; [facility] Metoprolol Tartrate 50 MG OR TABS 12/30/2013 - 07/20/2014 Provider: TONIO Perez MD Diagnosis: HYPERTENSION NOS 1 tab po daily Last Documented On 07/20/2014 12:45PM By DARLIN MARTINEZ MD ; [facility] Losartan Potassium-HCTZ 100-25 MG OR TABS 12/30/2013 - 07/20/2014 Provider: TONIO BARNES MD Diagnosis: HYPERTENSION NOS 1 tab po q am Last Documented On 07/20/2014 12:45PM By DARLIN MARTINEZ MD ; [facility] Losartan Potassium-HCTZ 100-25 MG OR TABS 11/12/2013 - 12/30/2013 Provider: TONIO BARNES MD Diagnosis: HYPERTENSION NOS 1 tab po q am Last Documented On 12/30/2013 4:48PM By SENA BARNES MD ; [facility] Metoprolol Tartrate 50 MG OR TABS 10/01/2013 - 12/30/2013 Provider: TONIO Perez MD Diagnosis: HYPERTENSION NOS 1 tab po daily Last Documented On 12/30/2013 4:49PM By SENA BARNES MD ; [facility] Lipitor 20 MG OR TABS 09/09/2013 - 12/30/2013 Provider: TONIO Perez MD Diagnosis: HYPERLIPIDEMIA N EC/NOS Last Documented On 12/30/2013 4:48PM By SENA BARNES MD ; [facility] Pindolol 5 MG OR TABS 09/09/2013 - 10/01/2013 Provider : TONIO BARNES MD Diagnosis: HYPERTENSION NOS Last Documented On 10/01/2013 4:19PM By SENA BARNES MD ; [facility] Losartan Potassium-HCTZ 100-25 MG OR TABS 07/01/2013 - 07/01/2013 Provider: TONIO BARNES MD Diagnosis: HYPERTENSION NOS 1 tab po q am Last Documented On 11/12/2013 4:31PM By Cherelle Palencia LPN ; [facility] Pindolol 5 MG OR TABS 06/05/2013 - 09/09/2013 Provider : TONIO BARNES MD Diagnosis: Last Documented On 09/09/2013 5:40PM By SENA BARNES MD ; [facility] Lipitor 20 MG OR TABS 06/05/2013 - 09/09/2013 Provider: TONIO Perez MD Diagnosis: HYPERLIPIDEMIA N EC/NOS Last Documented On 09/09/2013 5:39PM By SENA BARNES MD ; [facility] Losartan Potassium 50 MG OR TABS 05/04/2013 - 03/24/2014 Provider: TONIO Perez MD Diagnosis: HYPERTENSION NOS Last Documented On 03/24/2014 4:01PM By ESTRELLA MCKEON ; [facility] Pindolol 5 MG OR TABS 03/31/2013 - 06/05/2013 Provider : TONIO BARNES MD Diagnosis: Last Documented On 06/05/2013 4:30PM By Cherelle Palencia LPN ; [facility] Lipitor 20 MG OR TABS 03/31/2013 - 06/05/2013 Provider: TONIO Perez MD Diagnosis: HYPERLIPIDEMIA N EC/NOS Last Documented On 06/05/2013 4:30PM By Cherelle Palencia LPN ; [facility] Flexeril 10 MG OR TABS 01/14/2013 - 03/24/2014 Provide r: TONIO BARNES MD Diagnosis: 1 tab po q 8 hrs prn muscle spasms Last Documented On 03/24/2014 4:27PM By ESTRELLA MCKEON ; [facility] Lipitor 20 MG OR TABS 11/11/2012 - 03/31/2013 Provider: TONIO Perez MD Diagnosis: HYPERLIPIDEMIA N EC/NOS Last Documented On 03/31/2013 4:02PM By Cherelle Palencia LPN ; [facility] Losartan Potassium 50 MG OR TABS 11/11/2012 - 05/04/2013 Provider: TONIO Perez MD Diagnosis: HYPERTENSION NOS Last Documented On 05/04/2013 1:22PM By Cherelle Palencia LPN ; [facility] Lipitor 20 MG OR TABS 09/05/2012 - 11/11/2012 Provider: TONIO Perez MD Diagnosis: HYPERLIPIDEMIA N EC/NOS Last Documented On 11/11/2012 1:53PM By Cherelle Palencia LPN ; [facility] Lipitor 20 MG OR TABS 07/28/2012 - 09/05/2012 Provider: TONIO Perez MD Diagnosis: HYPERLIPIDEMIA N EC/NOS Last Documented On 09/05/2012 3:21PM By Cherelle Palencia LPN ; [facility] Losartan Potassium 50 MG OR TABS 05/19/2012 - 05/19/2012 Provider: TONIO Perez MD Diagnosis: HYPERTENSION NOS Last Documented On 11/11/2012 1:57PM By Cherelle Palencia LPN ; [facility] Pindolol 5 MG OR TABS 05/19/2012 - 05/19/2012 Provider : TONIO BARNES MD Diagnosis: HYPERTENSION NOS Last Documented On 11/11/2012 1:57PM By Cherelle Palencia LPN ; [facility] Lipitor 20 MG OR TABS 05/19/2012 - 07/28/2012 Provider: TONIO Perez MD Diagnosis: HYPERLIPIDEMIA N EC/NOS Last Documented On 07/28/2012 5:18PM By SENA BARNES MD ; [facility] Pindolol 5 MG OR TABS 05/14/2012 - 03/31/2013 Provider : TONIO BARNES MD Diagnosis: Last Documented On 03/31/2013 4:01PM By Cherelle Palencia LPN ; [facility] Losartan Potassium 50 MG OR TABS 05/14/2012 - 05/19/2012 Provider: TONIO Perez MD Diagnosis: Last Documented On 05/19/2012 3:25PM By SENA BARNES MD ; [facility] Losartan Potassium 50 MG OR TABS 12/18/2011 - 03/24/2014 Provider: TONIO Perez MD Diagnosis: Last Documented On 03/24/2014 4:01PM By ESTRELLA MCKEON ; [facility] Lipitor 20 MG OR TABS 12/18/2011 - 05/19/2012 Provider : TONIO BARNES MD Diagnosis: Last Documented On 05/19/2012 3:26PM By SENA BARNES MD ; [facility] Pindolol 5 MG OR TABS 12/18/2011 - 05/19/2012 Provider : TONIO BARNES MD Diagnosis: Last Documented On 05/19/2012 3:27PM By SENA BARNES MD ; [facility] Medications Administered Includes: Administered Medications in patient's chart No Administered Medications Recorded Results Includes: Results from 11/05/2023 through 11/04/2024 No Results Recorded For Specified Dates History of Present Illness History of Present Illness not supported for this document type No History of Present Illness Recorded Social History Description Last Updated Tobacco non-user 03/12/2022 Last Documented On 2 12:35PM ; [facility] Exercising erratically 02/22/2015 Last Documented On 5 8:35PM ; [facility] Not using alcohol 02/22/2015 Last Documented On 5 8:35PM ; [facility] Social history unchanged 02/22/2015 Last Documented On 5 8:35PM ; [facility] Smoking Status Unknown Medical History Includes: Medical History in patient's chart Description Last Updated History of colonoscopy fiberoptic was pe rformed 05/09/2015 03/12/2022 Last Documented On 2 12:35PM ; [facility] VASECTOMY 2001 ~BILATERAL CATARACT 2003 03/07/2020 Last Documented On 0 9:59PM ; [facility] Family History Includes: Family History in patient's chart Description Last Updated Daughter's history of family history of cancer BREAST CANCER 09/05/2020 Last Documented On 1 1:12PM ; [facility] Family history of heart dise ase MATERNAL SIDE HX ~ FATHER - HEART VALVE REPAIR 5 YEARS AGO. 09/07/2019 Last Documented On 0 4:12AM ; [facility] Family history of hypertension MOTHER DI ED OF STROKE 03/25/2014 Last Documented On 4 7:34AM ; [facility] Family history of cancer 05/19/2012 Last Documented On 2 4:48PM ; [facility] Review of Systems Review of Systems not supported for this document type No Review of Systems Recorded Mental Status Description Oriented to time, place, and person Functional Status No Functional Status Recorded Physical Exam Physical Exam not supported for this document type No Physical Exam Recorded Immunizations Includes: Immunizations in patient's chart Vaccine Dose # Date Site Reaction(s) Status Source COVID-19 Moderna 1 09/16/2020 Complete (Re ported) Patient Last Documented On 1 8:53AM ; [facility] COVID-19 Moderna 2 10/17/2020 Complete (Re ported) Patient Last Documented On 1 8:53AM ; [facility] COVID-19 Moderna 3 06/26/2021 Complete (Re ported) Patient Last Documented On 2 8:33AM ; [facility] COVID-19 Moderna 4 07/26/2021 Complete (Re ported) Patient Last Documented On 3 1:08PM ; [facility] Influenza (Quadrivalent)36 mo.& older PF 0.5ml (SD) 1 06/30/2018 Left Deltoid Complete (Administered) [facility] Last Documented On 8 11:27AM ; [facility] Allergies Includes: Active, inactive, and resolved Allergies No Known Allergies Insurance Includes: Active Insurance Policies Plan Name Member ID Group # Subscriber Relationship Effect meghan Dates 1 - [employer] [facility] [id number] VINAY CLARKE Self Clinical Notes Includes: Signed Clinical Notes starting from 09/07/2022 No Clinical Notes Recorded
--- OUTSIDE RECORDS SUMMARY | 2024-11-04 10:31 | XMS_ITS | Clinical Summary ---
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 ALEXA MARTINEZ MD Active Last Documented On 03/07/2020 8:46AM ; [facility] Note: Unchanged - using cpap [employer] Reported Family History of Heart Disease 12/17/2012 ALEXA MARTINEZ MD Inactive Last Documented On 03/24/2014 4:02PM ; [facility] Note: Unchanged Reported Family History of Cancer 08/20/2012 ALEXA MARTINEZ MD Inactive Last Documented On 03/24/2014 4:02PM ; [facility] Note: Unchanged Essential Hypertension Benign 12/18/2011 ALEXA MARTINEZ MD Active Last Documented On 4 7:30AM ; [facility] Plan of Treatment Pending Tests Order Diagnosis Results Due Ordering P rovider Outside Supplies CPAP MACHINE Obstructive sle ep apnea (adult) (pediatric) 02/06/23 ALEXA MARTINEZ MD Last Documented On 3 8:35AM ; [facility] Outside Supplies CPAP SUPPLIES Obstructive sle ep apnea (adult) (pediatric) 02/06/23 ALEXA MARTINEZ MD Last Documented On 3 8:35AM ; [facility] Outside Supplies Cologuard Encounter for s creening for malignant neoplasm of colon 08/21/23 ALEXA MARTINEZ MD Last Documented On 4 1:33PM ; [facility] Lab LIPID PANEL 02/18/24 ALEXA BOWSER MD Last Documented On 4 9:26AM ; [facility] Lab CMP 02/18/24 ALEXA Wagoner MD Last Documented On 4 9:26AM ; [facility] Lab CBC WITH DIFF 02/18/24 ALEXA CHOWDHURY MD Last Documented On 4 9:26AM ; [facility] Instructions to patient Recommend diet and exercise at least 30 min three times per week Last Documented On 3 9:37AM ; [facility] Assessments Includes: Assessments from this encounter Findings - Benign essential hypertension [I10 - Essential (primary) hypertension] - Last Documented On 09/10/2022 1:50PM ; [facility] - 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 - Obstructive sleep apnea (adult) (pediatric)] - Last Documented On 09/10/2022 1:50PM ; [facility] - Hypercholesterolemia [E78.00 - Pure hypercholesterolemia, unspecified] - Last Documented On 09/10/2022 1:50PM ; [facility] - 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] - Last Documented On 09/10/2022 1:50PM ; [facility] - Male erectile disorder [F52.21 - Male erectile disorder] - Last Documented On 09/10/2022 1:50PM ; [facility] Instructions Includes: Instructions from this encounter Instructions to patient Recommend diet and exercise at least 30 min three times per week Last Documented On 9:37AM ; [facility] Medical Equipment - Implanted Devices Includes: Current Devices No Medical Equipment Recorded Medications Includes: Medications discussed during this encounter and other current Medications Discontinued / Stopped on this date ALEXA MARTINEZ MD on 09/11/2021 Testosterone Cypionate 100 MG/ML Intramuscular Solution Provider: ALEXA CHOWDHURY MD Diagnosis: Essential (prima ry) hypertension Last Documented On 09/10/2022 9:20AM By DARLIN MARTINEZ MD ; [facility] Current Medications (continue as prescribed) Tlando 112.5 MG Oral Capsule 09/06/2022 Provider: Diagnosis: 2 CAPSULES BID Last Documented On 09/10/2022 9:37AM By Ave MCKEON ; [facility] Cialis 10 MG Oral Tablet 03/13/2021 Provider: DARLIN MARTINEZ MD Diagnosis: Male erectile di sorder 1 tab 30-45 min prior to raissa ired effect, max is 20 mg in 36 hour period Last Documented On 03/13/2021 9:48AM By DARLIN MARTINEZ MD ; [facility] Past Medications on file Metoprolol Succinate ER 100 MG Oral Tablet Extended Release 24 Hour 01/27/2024 - 07/25/2024 Provider: ALEXA MARTINEZ MD Diagnosis: Essential (prima ry) hypertension TAKE 2 TABLETS BY MOUTH EVERY DAY Last Documented On 01/27/2024 7:59AM By DARLIN MARTINEZ MD ; [facility] Atorvastatin Calcium 20 MG Oral Tablet 2023 - 03/24/2024 Provider: ALEXA MARTINEZ MD Diagnosis: Pure hypercholesterolemia, unspecified TAKE 1 TABLET BY MOUTH EVERY DAY Last Documented On 2023 1:53PM By DARLIN MARTINEZ MD ; [facility] hydroCHLOROthiazide 25 MG Oral Tablet 2023 - 03/24/2024 Provider: ALEXA MARTINEZ MD Diagnosis: Essential (prima ry) hypertension TAKE 1 TABLET BY MOUTH EVERY DAY Last Documented On 2023 2:09PM By DARLIN MARTINEZ MD ; [facility] Olmesartan Medoxomil 40 MG Oral Tablet 2023 - 03/24/2024 Provider: ALEXA MARTINEZ MD Diagnosis: Essential (prima ry) hypertension TAKE 1 TABLET BY MOUTH EVERY DAY Last Documented On 2023 2:09PM By DARLIN MARTINEZ MD ; [facility] Medications Administered Includes: Administered Medications from this encounter No Administered Medications Recorded Vital Signs Includes: Vital Signs from this encounter Vital Name 09/10/2022 09:08A Blood Pressure Sitting L 138/86 BP Cuff Size Large Pulse Rate-Sitting (bpm) 68 Pulse Rhythm Regular Height (in) 66 Weight (lb) 235 Body Mass Index 37.9 Body Surface Area 2.1 Oxygen Saturation (%) 96 Last Documented: On 09/10/2022 9:14AM ; [facility] Results Includes: Results discussed during this encounter No Results Recorded For Specified Dates History of Present Illness Includes: History of Present Illness from this encounter KARELY CLARKE is a 61 year old male. - Allergy list reviewed - Medication reconciliation performed - Medication list reviewed - Fatigue - Feeling fine - No fever - No ear symptoms - No nasal symptoms - , and No throat symptoms - No chest pain or discomfort - and No palpitations - No dyspnea - and No cough - No heartburn - No nausea - No vomiting - No abdominal pain - No diarrhea - , and No constipation - No urinary symptoms - No skin symptoms The patient is 61years old male, presents today for checkup. He has lost 20 pounds recently. He states that he feels energetic since past. He has been doing exercise regularly. He denies any acute concern today. He denies any chest pain, cough, or sob. He denies any bowel and bladder incontinence. He takes sound sleep at night. Overall, he is doing well. He has a history of testicular Failure. He has been following up with the urologist Valdemar Aguilar. He reports improvement after visiting urologist. He has a history of hypertension. He his blood pressure is in normal range today. He is taking Hydrochlorothiazide and Metoprolol. He is over due to for colon-cancer screening. Social History Description Last Updated Tobacco non-user 03/12/2022 Last Documented On 3 8:45AM ; [facility] Smoking status : Never smoker 12/30/2017 Last Documented On 3 8:45AM ; [facility] No caffeine use 07/13/2017 Last Documented On 3 8:45AM ; [facility] Not a current smoker 07/13/2017 Last Documented On 3 8:45AM ; [facility] Not using drugs 07/13/2017 Last Documented On 3 8:45AM ; [facility] Exercising erratically 02/22/2015 Last Documented On 3 8:45AM ; [facility] Not using alcohol 02/22/2015 Last Documented On 3 8:45AM ; [facility] Social history unchanged 02/22/2015 Last Documented On 3 8:45AM ; [facility] Procedures and Surgical History Includes: Procedures from this encounter Procedures Code Diagnosis Performing Provider Service L ocation Service Date standardized depression screening: negative for symptoms [id number] Last Documented On 3 8:45AM ; [facility] screening for adult depression: impressi on and score 0 Last Documented On 3 8:45AM ; [facility] Reviewed & agreed to staff entries. Last Documented On 3 9:37AM ; [facility] Clinical summary provided to patient Last Documented On 3 9:37AM ; [facility] Medical History Includes: Medical History addressed during this encounter Description Last Updated History of colonoscopy fiberoptic was pe rformed 05/09/2015 03/12/2022 Last Documented On 3 8:45AM ; [facility] VASECTOMY 2000 ~BILATERAL CATARACT 2003 03/07/2020 Last Documented On 3 8:45AM ; [facility] Family History Includes: Family History addressed during this encounter Description Last Updated Daughter's history of family history of cancer BREAST CANCER 09/05/2020 Last Documented On 3 8:45AM ; [facility] Family history of heart dise ase MATERNAL SIDE HX ~ FATHER - HEART VALVE REPAIR 5 YEARS AGO. 09/07/2019 Last Documented On 3 8:45AM ; [facility] Family history of hypertension MOTHER DI ED OF STROKE 03/25/2014 Last Documented On 3 8:45AM ; [facility] Family history of cancer 05/19/2012 Last Documented On 3 8:45AM ; [facility] Review of Systems Includes: Review of Systems [...] and no heartburn. No nausea, no vomiting, no abdominal pain, and no diarrhea. Musculoskeletal: No muscle aches and no localized joint pain. Neurological: No dizziness. Mental Status Includes: Mental Status from this encounter Description Oriented to time, place, and person Functional Status Includes: Functional Status from this encounter No Functional Status Recorded Physical Exam Includes: Physical Exam from this encounter Allergies Includes: Active Allergies No Known Allergies Encounters Encounter Provider Location Date Check-In Time Check-Out Time Diagnosis CHECK UP ALEXA MARTINEZ MD [facility] 09/10/19 23 8:44AM 9:36AM Essential Hypertension Benign,Iatrogen ic Testicular Failure,Male Erectile Disorder,Organi c Sleep Apnea Obstructive Adult,Hyperchol esterolemia Insurance Includes: Active Insurance Policies Plan Name Member ID Group # Subscriber Relationship Effect meghan Dates 1 - AENA [facility] [id number] VINAY CLARKE Self Clinical Notes Includes: Clinical Notes from this encounter * Progress note Date Encounter Last Documented by 09/10/2022 CHECK UP Last documented on 09/10/2022; 1:50 PM, ALEXA MARTINEZ MD; [facility] Active Problems & Conditions - Essential Hypertension Benign - Hypercholesterolemia - Iatrogenic Testicular Failure - Male Erectile Disorder - Organic Sleep Apnea Obstructive Adult [facility] Chief Complaint The Chief Complaint is: Check up VALDEMAR AGUILAR UROLOGY. History of Present Illness VINAY CLARKE is a 61 year old male. - Allergy list reviewed - Medication reconciliation performed - Medication list reviewed - Fatigue - Feeling fine - No fever - No ear symptoms - No nasal symptoms - , and No throat symptoms - No chest pain or discomfort - and No palpitations - No dyspnea - and No cough - No heartburn - No nausea - No vomiting - No abdominal pain - No diarrhea - , and No constipation - No urinary symptoms - No skin symptoms The patient is 61years old male, presents today for checkup. He has lost 20 pounds recently. He states that he feels energetic since past. He has been doing exercise regularly. He denies any acute concern today. He denies any chest pain, cough, or sob. He denies any bowel and bladder incontinence. He takes sound sleep at night. Overall, he is doing well. He has a history of testicular Failure. He has been following up with the urologist Valdemar Aguilar. He reports improvement after visiting urologist. He has a history of hypertension. He his blood pressure is in normal range today. He is taking Hydrochlorothiazide and Metoprolol. He is over due to for colon-cancer screening. Current Medication - Atorvastatin Calcium 20 MG Oral Tablet TAKE 1 TABLET BY MOUTH EVERY DAY, 90 days, 1 refills - Cialis 10 MG Oral Tablet 1 tab 30-45 min prior to desired effect, max is 20 mg in 36 hour period, 30 days, 5 refills - hydroCHLOROthiazide 25 MG Oral Tablet TAKE 1 TABLET BY MOUTH EVERY DAY, 90 days, 1 refills - Metoprolol Succinate ER 100 MG Oral Tablet Extended Release 24 Hour TAKE 2 TABLETS BY MOUTH EVERY DAY, 90 days, 1 refills - Olmesartan Medoxomil 40 MG Oral Tablet TAKE 1 TABLET BY MOUTH EVERY DAY, 90 days, 1 refills - Tlando 112.5 MG Oral Capsule as directed 2 CAPSULES BID, 30 days, 0 refills Past Medical/Surgical History Other: Colonoscopy fiberoptic was performed 05/09/2015 VASECTOMY 2001 BILATERAL CATARACT 2002. Social History Social history unchanged. Caffeine use: No caffeine use. Tobacco use: Not a current smoker. Tobacco non-user. Smoking status: Never smoker. Alcohol: Not using alcohol. Drug Use: Not using drugs. Habits: Exercising erratically. Allergies - No Known Allergies Family History Cancer Heart disease MATERNAL SIDE HX FATHER - HEART VALVE REPAIR 5 YEARS AGO. Systemic hypertension MOTHER OF STROKE Daughter's: Cancer BREAST CANCER Review Of Systems Systemic: Not feeling poorly (malaise). Fatigue. No fever, no chills, and no recent weight change. Head: No headache. Eyes: No vision problems. Otolaryngeal: No earache, no nasal discharge, and no sore throat. Cardiovascular: No chest pain or discomfort and no palpitations. Pulmonary: No dyspnea, no cough, and no wheezing. Gastrointestinal: Normal appetite and no heartburn. No nausea, no vomiting, no abdominal pain, and no diarrhea. Musculoskeletal: No muscle aches and no localized joint pain. Neurological: No dizziness. Physical Findings - Vitals taken 09/10/2022 09:08 am BP-Sitting L 138/86 mmHg 100 - 120/60 - 80 BP Cuff Size Large Pulse Rate-Sitting 68 bpm 50 - 100 Pulse Rhythm Regular Height 66 in 64 - 74 Weight 235 lbs 125 - 225 Body Mass Index 37.9 kg/m2 Body Surface Area 2.1 m2 Oxygen Saturation 96 % 93 - 100 General Appearance: - Well developed. - Well nourished. - In no acute distress. Eyes: General/bilateral: Extraocular Movements: - Normal. Ears: General/bilateral: Tympanic Membrane: - Normal. Nose: General/bilateral: Discharge: - No nasal discharge. Pharynx: Oropharynx: - Normal. Lungs: - Normal breath sounds/voice sounds. - No wheezing was heard. - No rhonchi were heard. - No rales/crackles were heard. Cardiovascular: Heart Rate And Rhythm: - Normal. Murmurs: - No murmurs were heard. Abdomen: Auscultation: - Bowel sounds were normal. Palpation: - Abdominal non-tender. Musculoskeletal System: General/bilateral: - Musculoskeletal system: normal. Neurological: - Oriented to time, place, and person. 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 - Clinical summary provided to patient. Counseling/Education - Recommend diet and exercise at least 30 min three times per week Discussed The patient presents today for checkup. I reviewed and updated his current medication regimen. We discussed about colon cancer screening including FIT test, colonoscopy and Cologuard. Continue with current medication regimen. The patient understands and agrees with the plan. Plan StartCited - Encntr for general adult medical exam w/o abnormal findings Lab: LIPID PANEL Lab: CMP Lab: CBC WITH DIFF EndCited Other Mica Alvarado scribing the following documents on behalf of Anderson Lopez MD. Practice Management Standardized depression screening: negative for symptoms and for adult impression and score 0. Health Reminders - Assess Blood Pressure satisfied 09/10/2022. - Assess BMI satisfied 09/10/2022. - Assess Tobacco Use satisfied 03/12/2022. - Colorectal Cancer Screening satisfied 05/09/2015. - Depression Screening satisfied 09/10/2022. - Flu Shot refused. - Follow Up Plan BMI Management satisfied 09/10/2022. - Follow up plan for Depression Screening satisfied 09/10/2022.
--- OUTSIDE RECORDS SUMMARY | 2024-11-04 10:31 | XMS_ITS | Clinical Summary ---
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 ALEXA MARTINEZ MD Active Last Documented On 03/07/2020 8:46AM ; [facility] Note: Unchanged - using cpap [employer] Essential Hypertension Benign 12/18/2011 ALEXA MARTINEZ MD Active Last Documented On 4 7:30AM ; [facility] Plan of Treatment Pending Tests Order Diagnosis Results Due Ordering P rovider Outside Supplies CPAP MACHINE Obstructive sle ep apnea (adult) (pediatric) 02/06/23 ALEXA MARTINEZ MD Last Documented On 3 8:35AM ; [facility] Outside Supplies CPAP SUPPLIES Obstructive sle ep apnea (adult) (pediatric) 02/06/23 ALEXA MARTINEZ MD Last Documented On 3 8:35AM ; [facility] Outside Supplies Cologuard Encounter for s creening for malignant neoplasm of colon 08/21/23 ALEXA MARTINEZ MD Last Documented On 4 1:33PM ; [facility] Lab LIPID PANEL 02/18/24 ALEXA BOWSER MD Last Documented On 4 9:26AM ; [facility] Lab CMP 02/18/24 ALEXA Wagoner MD Last Documented On 4 9:26AM ; [facility] CBC WITH DIFF 02/18/24 ALEXA CHOWDHURY MD Last Documented On 4 9:26AM ; [facility] Referrals To Diagnosis Urologist [facility] - [id number] [place] [address] - Postprocedural testicular hypofunction Note: Testicular failure and erectile dysfunction. In or around [place]. Last Documented On 4 2:15AM ; [facility] Instructions to patient Intervention and counseling on cessation of tobacco use Last Documented On 2 8:35AM ; [facility] Assessments Includes: Assessments from this encounter Findings - Routine adult history and physical (18-64 yrs) without abnormal findings [Z00.00 - Encounter for general adult medical examination without abnormal findings] - Last Documented On 03/12/2022 12:35PM ; [facility] - Benign essential hypertension [I10 - Essential (primary) hypertension] - Last Documented On 03/12/2022 12:35PM ; [facility] - 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 - Obstructive sleep apnea (adult) (pediatric)] - Last Documented On 03/12/2022 12:35PM ; [facility] - Hypercholesterolemia [E78.00 - Pure hypercholesterolemia, unspecified] - Last Documented On 03/12/2022 12:35PM ; [facility] - 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] - Last Documented On 03/12/2022 12:35PM ; [facility] - Male erectile disorder [F52.21 - Male erectile disorder] - Last Documented On 03/12/2022 12:35PM ; [facility] Instructions Includes: Instructions from this encounter Instructions to patient Intervention and counseling on cessation of tobacco use Last Documented On 8:35AM ; [facility] Medical Equipment - Implanted Devices Includes: Current Devices No Medical Equipment Recorded Medications Includes: Medications discussed during this encounter and other current Medications Current Medications (continue as prescribed) Tlando 112.5 MG Oral Capsule 09/06/2022 Provider: Diagnosis: 2 CAPSULES BID Last Documented On 09/10/2022 9:37AM By Ave [facility]KEON ; [facility] Cialis 10 MG Oral Tablet 03/13/2021 Provider: DARLIN MARTINEZ MD Diagnosis: Male erectile di sorder 1 tab 30-45 min prior to raissa ired effect, max is 20 mg in 36 hour period Last Documented On 03/13/2021 9:48AM By DARLIN MARTINEZ MD ; [facility] Past Medications on file Metoprolol Succinate ER 100 MG Oral Tablet Extended Release 24 Hour 01/27/2024 - 07/25/2024 Provider: ALEXA MARTINEZ MD Diagnosis: Essential (prima ry) hypertension TAKE 2 TABLETS BY MOUTH EVERY DAY Last Documented On 01/27/2024 7:59AM By DARLIN MARTINEZ MD ; [facility] Atorvastatin Calcium 20 MG Oral Tablet 2023 - 03/24/2024 Provider: ALEXA MARTINEZ MD Diagnosis: Pure hypercholesterolemia, unspecified TAKE 1 TABLET BY MOUTH EVERY DAY Last Documented On 2023 1:53PM By DARLIN MARTINEZ MD ; [facility] hydroCHLOROthiazide 25 MG Oral Tablet 2023 - 03/24/2024 Provider: ALEXA MARTINEZ MD Diagnosis: Essential (prima ry) hypertension TAKE 1 TABLET BY MOUTH EVERY DAY Last Documented On 2023 2:09PM By DARLIN MARTINEZ MD ; [facility] Olmesartan Medoxomil 40 MG Oral Tablet 2023 - 03/24/2024 Provider: ALEXA MARTINEZ MD Diagnosis: Essential (prima ry) hypertension TAKE 1 TABLET BY MOUTH EVERY DAY Last Documented On 2023 2:09PM By DARLIN MARTINEZ MD ; [facility] Medications Administered Includes: Administered Medications from this encounter No Administered Medications Recorded Vital Signs Includes: Vital Signs from this encounter Vital Name 03/12/2022 08:35A Blood Pressure Sitting L 148/90 BP Cuff Size Large Pulse Rate-Sitting (bpm) 70 Respiration Rate (breaths/min) 18 Temp-Oral (F) 97.3 Height (in) 66 Weight (lb) 252 Body Mass Index (kg/m2) 40.7 Body Surface Area (m2) 2.2 Oxygen Saturation (%) 99 Last Documented: On 03/12/2022 8:36AM ; [facility] Results Includes: Results discussed during this encounter No Results Recorded For Specified Dates History of Present Illness Includes: History of Present Illness from this encounter KARELY CLARKE is a 61 year old male. - Allergy list reviewed - Medication reconciliation performed - Medication list reviewed - Fatigue - Feeling fine - No fever - No headache - No neck pain - and No neck stiffness - No eye symptoms - No ear symptoms - No nasal symptoms - , and No throat symptoms - No chest pain or discomfort - and No palpitations - Not feeling congested in the chest - No dyspnea - , and No cough - No heartburn - No nausea - No vomiting - No abdominal pain - No diarrhea - , and No constipation - No urinary symptoms - No skin symptoms The patient is 61years old male, presents today for checkup. He denies any acute concern today. He denies any acute concern today. He denies any chest pain, cough, or sob. He denies any bowel and bladder incontinence. He takes sound sleep at night. Overall, he is doing well. He has been receiving testosterone shots. He inquired about referral for shots. He has a history of sleep apnea. He has been using C-pap nightly. He has a history of hypertension. His blood pressure has improved since past 140/90. He is taking Metoprolol 100mg BID with efficacy. Social History Description Last Updated Tobacco non-user 03/12/2022 Last Documented On 12:35PM ; [facility] Smoking Status Unknown Procedures and Surgical History Includes: Procedures from this encounter Procedures Code Diagnosis Performing Provider Service L ocation Service Date intervention and counseling on cessation of tobacco use 4000F Last Documented On 8:35AM ; [facility] use of tobacco assessment performed 1000F Last Documented On 2 8:35AM ; [facility] Reviewed & agreed to staff entries. Last Documented On 2 8:53AM ; [facility] Clinical summary provided to patient Last Documented On 2 8:53AM ; [facility] Medical History Includes: Medical History addressed during this encounter Description Last Updated History of colonoscopy fiberoptic was pe rformed 05/09/2015 03/12/2022 Last Documented On 2 12:35PM ; [facility] Family History Includes: Family History addressed during this encounter No Family History Recorded Review of Systems Includes: Review of Systems [...] nausea, no vomiting, and no abdominal pain. Neurological: No dizziness. Mental Status Includes: Mental Status from this encounter Description Oriented to time, place, and person Functional Status Includes: Functional Status from this encounter No Functional Status Recorded Physical Exam Includes: Physical Exam from this encounter Allergies Includes: Active Allergies No Known Allergies Encounters Encounter Provider Location Date Check-In Time Check-Out Time Diagnosis CHECK UP ALEXA MARTINEZ MD [facility] 03/12/20 22 8:22AM 9:11AM Essential Hypertension Benign,Hypercho lesterolemia,Ia trogenic Testicular Failure,Organic Sleep Apnea Obstructive Adult,Routine History & Physical Adult Without Abnormal Findings,Male Erectile Disorder Insurance Includes: Active Insurance Policies Plan Name Member ID Group # Subscriber Relationship Effect meghan Dates 1 - [employer] [facility] [id number] VINAY CLARKE Self Clinical Notes Includes: Clinical Notes from this encounter No Clinical Notes Recorded
--- OUTSIDE RECORDS SUMMARY | 2024-11-04 10:32 | XMS_ITS | Clinical Summary ---
Author Organization [facility] Address [address] [place] [address] Phone Care Team Providers Care Chrome Worker Name Role Phone ALEXA EVANS MD Primary Care Provider [phone] Reason for Visit and Chief Complaint The Chief Complaint is: 6 month check up. 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 ALEXA EVANS MD Active Last Documented On 03/07/2020 8:46AM ; [facility] Note: Unchanged - using cpap [employer] Reported Family History of Heart Disease 12/17/2012 ALEXA EVANS MD Inactive Last Documented On 03/24/2014 4:02PM ; [facility] Note: Unchanged Reported Family History of Cancer 08/20/2012 ALEXA EVANS MD Inactive Last Documented On 03/24/2014 4:02PM ; [facility] Note: Unchanged Essential Hypertension Benign 12/18/2011 ALEXA EVANS MD Active Last Documented On 4 7:30AM ; [facility] Past Visits Onset Date Resolved Date Provider Condition Status Male Erectile Disorder 03/07/2020 ALEXA EVANS MD Active Last Documented On 03/07/2020 9:58PM ; [facility] Note: Unchanged Plan of Treatment Pending Tests Order Diagnosis Results Due Ordering P rovider Outside Supplies CPAP MACHINE Obstructive sle ep apnea (adult) (pediatric) 02/06/23 ALEXA EVANS MD Last Documented On 3 8:35AM ; [facility] Outside Supplies CPAP SUPPLIES Obstructive sle ep apnea (adult) (pediatric) 02/06/23 ALEXA EVANS MD Last Documented On 3 8:35AM ; [facility] Outside Supplies Cologuard Encounter for s creening for malignant neoplasm of colon 08/21/23 ALEXA EVANS MD Last Documented On 4 1:33PM ; [facility] Lab LIPID PANEL 02/18/24 ALEXA BOWSER MD Last Documented On 4 9:26AM ; [facility] Lab CMP 02/18/24 ALEXA Wagoner MD Last Documented On 4 9:26AM ; [facility] Lab CBC WITH DIFF 02/18/24 ALEXA CHOWDHURY MD Last Documented On 4 9:26AM ; [facility] Instructions to patient Intervention and counseling on cessation of tobacco use Last Documented On 4 1:18PM ; [facility] Assessments Includes: Assessments from this encounter Findings - Routine adult history and physical (18-64 yrs) without abnormal findings [Z00.00 - Encounter for general adult medical examination without abnormal findings] - Last Documented On 08/22/2023 9:30AM ; [facility] - Benign essential hypertension [I10 - Essential (primary) hypertension] - Last Documented On 08/22/2023 9:30AM ; [facility] - 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 - Obstructive sleep apnea (adult) (pediatric)] - Last Documented On 08/22/2023 9:30AM ; [facility] - Hypercholesterolemia [E78.00 - Pure hypercholesterolemia, unspecified] - Last Documented On 08/22/2023 9:30AM ; [facility] - 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] - Last Documented On 08/22/2023 9:30AM ; [facility] Instructions Includes: Instructions from this encounter Instructions to patient Intervention and counseling on cessation of tobacco use Last Documented On 1:18PM ; [facility] Medical Equipment - Implanted Devices Includes: Current Devices No Medical Equipment Recorded Medications Includes: Medications discussed during this encounter and other current Medications Current Medications (continue as prescribed) Tlando 112.5 MG Oral Capsule 09/06/2022 Provider: Diagnosis: 2 CAPSULES BID Last Documented On 09/10/2022 9:37AM By Ave MCKEON ; [facility] Cialis 10 MG Oral Tablet 03/13/2021 Provider: DARLIN EVANS MD Diagnosis: Male erectile di sorder 1 tab 30-45 min prior to raissa ired effect, max is 20 mg in 36 hour period Last Documented On 03/13/2021 9:48AM By DARLIN EVANS MD ; [facility] Past Medications on file Metoprolol Succinate ER 100 MG Oral Tablet Extended Release 24 Hour 01/27/2024 - 07/25/2024 Provider: ALEXA EVANS MD Diagnosis: Essential (prima ry) hypertension TAKE 2 TABLETS BY MOUTH EVERY DAY Last Documented On 01/27/2024 7:59AM By DARLIN EVANS MD ; [facility] Atorvastatin Calcium 20 MG Oral Tablet 2023 - 03/24/2024 Provider: ALEXA EVANS MD Diagnosis: Pure hypercholesterolemia, unspecified TAKE 1 TABLET BY MOUTH EVERY DAY Last Documented On 2023 1:53PM By DARLIN EVANS MD ; [facility] hydroCHLOROthiazide 25 MG Oral Tablet 2023 - 03/24/2024 Provider: ALEXA EVANS MD Diagnosis: Essential (prima ry) hypertension TAKE 1 TABLET BY MOUTH EVERY DAY Last Documented On 2023 2:09PM By DARLIN EVANS MD ; [facility] Olmesartan Medoxomil 40 MG Oral Tablet 2023 - 03/24/2024 Provider: ALEXA EVANS MD Diagnosis: Essential (prima ry) hypertension TAKE 1 TABLET BY MOUTH EVERY DAY Last Documented On 2023 2:09PM By DARLIN EVANS MD ; [facility] Medications Administered Includes: Administered Medications from this encounter No Administered Medications Recorded Vital Signs Includes: Vital Signs from this encounter Vital Name 08/21/2023 01:10P Blood Pressure Sitting (mmHg) 142/70 Pulse Rate-Sitting (bpm) 60 Respiration Rate (breaths/min) 20 Height (in) 66 Weight (lb) 209 Body Mass Index 33.7 Body Surface Area 2 Last Documented: On 08/21/2023 1:18PM ; [facility] Results Includes: Results discussed during this encounter No Results Recorded For Specified Dates History of Present Illness Includes: History of Present Illness from this encounter KARELY CLARKE is a 62 year old male. - Allergy list reviewed - Medication list reviewed - Feeling fine - No fever - No headache - No ear symptoms - No nasal symptoms - , and No throat symptoms - No chest pain or discomfort - and No palpitations - No dyspnea - and No cough - No heartburn - No nausea - No vomiting - No abdominal pain - No diarrhea - , and No constipation - No urinary symptoms - No musculoskeletal symptoms - No skin symptoms The patient is a 62 years old male, who presents today for a checkup. He denies any acute concern today. He denies any chest pain, cough, or shortness of breath. He denies any bowel and bladder incontinence. He takes sound sleep at night. Overall, he has been doing well. Social History Description Last Updated Tobacco non-user 03/12/2022 Last Documented On 4 1:11PM ; [facility] Exercising erratically 02/22/2015 Last Documented On 4 1:11PM ; [facility] Not using alcohol 02/22/2015 Last Documented On 4 1:11PM ; [facility] Social history unchanged 02/22/2015 Last Documented On 4 1:11PM ; [facility] Smoking Status Unknown Procedures and Surgical History Includes: Procedures from this encounter Procedures Code Diagnosis Performing Provider Service L ocation Service Date plan of care reviewed and agreed to Last Documented On 4 1:24PM ; [facility] intervention and counseling on cessation of toba claims account specialist use 4000F Last Documented On 4 1:18PM ; [facility] use of tobacco assessment performed 1000F Last Documented On 4 1:18PM ; [facility] review of medications documented 1160F Last Documented On 4 1:18PM ; [facility] Reviewed & agreed to staff entries. Last Documented On 4 1:24PM ; [facility] Clinical summary provided to patient Last Documented On 4 1:24PM ; [facility] Medical History Includes: Medical History addressed during this encounter Description Last Updated History of colonoscopy fiberoptic was pe rformed 05/09/2015 03/12/2022 Last Documented On 4 1:11PM ; [facility] VASECTOMY 2001 ~BILATERAL CATARACT 2003 03/07/2020 Last Documented On 4 1:11PM ; [facility] Family History Includes: Family History addressed during this encounter Description Last Updated Daughter's history of family history of cancer BREAST CANCER 09/05/2020 Last Documented On 4 1:11PM ; [facility] Family history of heart dise ase MATERNAL SIDE HX ~ FATHER - HEART VALVE REPAIR 5 YEARS AGO. 09/07/2019 Last Documented On 4 1:11PM ; [facility] Family history of hypertension MOTHER DI ED OF STROKE 03/25/2014 Last Documented On 4 1:11PM ; [facility] Family history of cancer 05/19/2012 Last Documented On 4 1:11PM ; [facility] Review of Systems Includes: Review of Systems from this encounter Systemic: No fever, no chills, and no night sweats. Head: No headache. Eyes: No vision problems. Otolaryngeal: No earache, no nasal discharge, and no sore throat. Cardiovascular: No chest pain or discomfort and no palpitations. Pulmonary: No dyspnea, no cough, and no wheezing. Gastrointestinal: Normal appetite and no heartburn. No nausea, no vomiting, no abdominal pain, and no diarrhea. Genitourinary: No dysuria. Musculoskeletal: No muscle aches and no localized joint pain. Neurological: No dizziness. Psychological: No sleep disturbances. Mental Status Includes: Mental Status from this encounter Description Oriented to time, place, and person Functional Status Includes: Functional Status from this encounter No Functional Status Recorded Physical Exam Includes: Physical Exam from this encounter Allergies Includes: Active Allergies No Known Allergies Encounters Encounter Provider Location Date Check-In Time Check-Out Time Diagnosis CHECK UP ALEXA EVANS MD [facility] 08/21/19 24 12:55PM 1:48PM Essential Hypertension Benign,Hypercho lesterolemia,Ia trogenic Testicular Failure,Organic Sleep Apnea Obstructive Adult,Routine History & Physical Adult Without Abnormal Findings Insurance Includes: Active Insurance Policies Plan Name Member ID Group # Subscriber Relationship Effect meghan Dates - [facility] [id number] VINAY CLARKE Self Clinical Notes Includes: Clinical Notes from this encounter * Progress note Date Encounter Last Documented by 08/21/2023 CHECK UP Last documented on 08/22/2023; 9:30 AM, ALEXA EVANS MD; [facility] Active Problems & Conditions - Essential Hypertension Benign - Hypercholesterolemia - Iatrogenic Testicular Failure - GREGOR CISNEROS. - Male Erectile Disorder - Organic Sleep Apnea Obstructive Adult - using cpap [employer] Chief Complaint The Chief Complaint is: 6 month check up. No c/o. History of Present Illness VINAY CLARKE is a 62 year old male. - Allergy list reviewed - Medication list reviewed - Feeling fine - No fever - No headache - No ear symptoms - No nasal symptoms - , and No throat symptoms - No chest pain or discomfort - and No palpitations - No dyspnea - and No cough - No heartburn - No nausea - No vomiting - No abdominal pain - No diarrhea - , and No constipation - No urinary symptoms - No musculoskeletal symptoms - No skin symptoms The patient is a 62 years old male, who presents today for a checkup. He denies any acute concern today. He denies any chest pain, cough, or shortness of breath. He denies any bowel and bladder incontinence. He takes sound sleep at night. Overall, he has been doing well. Current Medication - Atorvastatin Calcium 20 MG [...] days, 0 refills Past Medical/Surgical History Other: Diaignostic fiberoptic colonoscopy 05/09/2015 VASECTOMY 2001 BILATERAL CATARACT 2002. Social History Social history unchanged. Tobacco use: Tobacco non-user. Alcohol: Not using alcohol. Habits: Exercising erratically. Allergies - No Known Allergies Family History Cancer Heart disease MATERNAL SIDE HX FATHER - HEART VALVE REPAIR 5 YEARS AGO. Systemic hypertension MOTHER OF STROKE Daughter's: Cancer BREAST CANCER Review Of Systems Systemic: No fever, no chills, and no night sweats. Head: No headache. Eyes: No vision problems. Otolaryngeal: No earache, no nasal discharge, and no sore throat. Cardiovascular: No chest pain or discomfort and no palpitations. Pulmonary: No dyspnea, no cough, and no wheezing. Gastrointestinal: Normal appetite and no heartburn. No nausea, no vomiting, no abdominal pain, and no diarrhea. Genitourinary: No dysuria. Musculoskeletal: No muscle aches and no localized joint pain. Neurological: No dizziness. Psychological: No sleep disturbances. Physical Findings - Vitals taken 08/21/2023 01:10 pm BP-Sitting 142/70 mmHg 100 - 120/60 - 80 Pulse Rate-Sitting 60 bpm 50 - 100 Respiration Rate 20 per min 18 - 26 Height 66 in 64 - 74 Weight 209 lbs 123 - 215 Body Mass Index 33.7 kg/m2 Body Surface Area 2 m2 General Appearance: - Well developed. - Well nourished. - In no acute distress. Neck: Thyroid: - Showed no abnormalities. Eyes: General/bilateral: Extraocular Movements: - Normal. Pupils: - PERRLA. Ears: General/bilateral: Tympanic Membrane: - Normal. Nose: [...] - Oriented to time, place, and person. 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 - Intervention and counseling on cessation of tobacco use. - Clinical summary provided to patient. - Plan of care reviewed and agreed to. Discussed Dr. Evans reviewed his lab results and updated his medication today. Advised the patient to continue with the current medication regimen. Dr. Evans advised the patient to eat a healthy diet including fresh fruits and vegetables. Discussed about colonoscopy and Cologuard with the patient in detail. Provided an order for Cologuard. The patient understands and agrees with the plan. Plan StartCited - Encntr for general adult medical exam w/o abnormal findings Lab: LIPID PANEL Lab: CMP Lab: CBC WITH DIFF EndCited StartCited - Encounter for screening for malignant neoplasm of colon Outside Supplies: Cologuard EndCited StartCited - Other Y ORDER/COMMENT we need copies of dr Fall from [place] on him. 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 Practice Management Use of tobacco assessment performed Review of medications documented. Health Reminders - Assess Blood Pressure satisfied 08/21/2023. - Assess BMI satisfied 08/21/2023. - Assess Need for CT Lung Screen satisfied 03/12/2022. - Assess Tobacco Use satisfied 08/21/2023. - Colorectal Cancer Screening satisfied 05/09/2015.
--- OUTSIDE RECORDS SUMMARY | 2024-11-04 10:32 | XMS_ITS | Clinical Summary ---
Author Organization [facility] Address [address] [place] [address] Phone Care Team Providers Care Guidance Secretary Name Role Phone ALEXA MARTINEZ MD Primary Care Provider [phone] Reason for Visit and Chief Complaint The Chief Complaint is: Ckup- Needing new CPAP machine, his old one is not working at all. Goes through [facility] in [place]. 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 ALEXA MARTINEZ MD Active Last Documented On 03/07/2020 8:46AM ; [facility] Note: Unchanged [facility] Rep[facility] Family History of Heart Disease 12/17/2012 ALEXA MARTINEZ MD Inactive Last Documented On 03/24/2014 4:02PM ; [facility] Note: Unchanged Reported Family History of Cancer 08/20/2012 ALEXA MARTINEZ MD Inactive Last Documented On 03/24/2014 4:02PM ; [facility] Note: Unchanged Essential Hypertension Benign 12/18/2011 ALEXA MARTINEZ MD Active Last Documented On 4 7:30AM ; [facility] Past Visits Onset Date Resolved Date Provider Condition Status Male Erectile Disorder 03/07/2020 ALEXA MARTINEZ MD Active Last Documented On 03/07/2020 9:58PM ; [facility] Note: Unchanged Plan of Treatment Pending Tests Order Diagnosis Results Due Ordering P rovider Outside Supplies CPAP MACHINE Obstructive sle ep apnea (adult) (pediatric) 02/06/23 ALEXA MARTINEZ MD Last Documented On 3 8:35AM ; [facility] Outside Supplies CPAP SUPPLIES Obstructive sle ep apnea (adult) (pediatric) 02/06/23 ALEXA MARTINEZ MD Last Documented On 3 8:35AM ; [facility] Outside Supplies Cologuard Encounter for s creening for malignant neoplasm of colon 08/21/23 ALEXA MARTINEZ MD Last Documented On 4 1:33PM ; [facility] Lab LIPID PANEL 02/18/24 ALEXA BOWSER MD Last Documented On 4 9:26AM ; [facility] Lab CMP 02/18/24 ALEXA Wagoner MD Last Documented On 4 9:26AM ; [facility] Lab CBC WITH DIFF 02/18/24 ALEXA CHOWDHURY MD Last Documented On 4 9:26AM ; [facility] Assessments Includes: Assessments from this encounter Findings - Benign essential hypertension [I10 - Essential (primary) hypertension] - Last Documented On 02/18/2023 2:09AM ; [facility] - 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 - Obstructive sleep apnea (adult) (pediatric)] - Last Documented On 02/18/2023 2:09AM ; [facility] - Hypercholesterolemia [E78.00 - Pure hypercholesterolemia, unspecified] - Last Documented On 02/18/2023 2:09AM ; [facility] - 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] - Last Documented On 02/18/2023 2:09AM ; [facility] Medical Equipment - Implanted Devices Includes: Current Devices No Medical Equipment Recorded Medications Includes: Medications discussed during this encounter and other current Medications Discontinued / Stopped on this date ALEXA MARTINEZ MD on 06/29/2022 Atorvastatin Calcium 20 MG Oral Tablet Provider: ALEXA MARTINEZ MD Diagnosis: Pure hypercholes terolemia, unspecified Last Documented On 02/06/2023 1:03PM By Ave MCKEON ; [facility] Current Medications (continue as prescribed) Tlando 112.5 MG Oral Capsule 09/06/2022 Provider: Diagnosis: 2 CAPSULES BID Last Documented On 09/10/2022 9:37AM By Ave MCKEON ; [facility] Cialis 10 MG Oral Tablet 03/13/2021 Provider: DARLIN MARTINEZ MD Diagnosis: Male erectile di sorder 1 tab 30-45 min prior to raissa ired effect, max is 20 mg in 36 hour period Last Documented On 03/13/2021 9:48AM By DARLIN MARTINEZ MD ; [facility] Past Medications on file Metoprolol Succinate ER 100 MG Oral Tablet Extended Release 24 Hour 01/27/2024 - 07/25/2024 Provider: ALEXA MARTINEZ MD Diagnosis: Essential (prima ry) hypertension TAKE 2 TABLETS BY MOUTH EVERY DAY Last Documented On 01/27/2024 7:59AM By DARLIN MARTINEZ MD ; [facility] Atorvastatin Calcium 20 MG Oral Tablet 2023 - 03/24/2024 Provider: ALEXA MARTINEZ MD Diagnosis: Pure hypercholesterolemia, unspecified TAKE 1 TABLET BY MOUTH EVERY DAY Last Documented On 2023 1:53PM By DARLIN MARTINEZ MD ; [facility] hydroCHLOROthiazide 25 MG Oral Tablet 2023 - 03/24/2024 Provider: ALEXA MARTINEZ MD Diagnosis: Essential (prima ry) hypertension TAKE 1 TABLET BY MOUTH EVERY DAY Last Documented On 2023 2:09PM By DARLIN MARTINEZ MD ; [facility] Olmesartan Medoxomil 40 MG Oral Tablet 2023 - 03/24/2024 Provider: ALEXA MARTINEZ MD Diagnosis: Essential (prima ry) hypertension TAKE 1 TABLET BY MOUTH EVERY DAY Last Documented On 2023 2:09PM By DARLIN MARTINEZ MD ; [facility] Medications Administered Includes: Administered Medications from this encounter No Administered Medications Recorded Vital Signs Includes: Vital Signs from this encounter Vital Name 02/06/2023 01:03P Blood Pressure Sitting L 150/78 BP Cuff Size Large Pulse Rate-Sitting (bpm) 52 Pulse Rhythm Regular Height (in) 66 Weight (lb) 203 Body Mass Index 32.8 Body Surface Area 2 Oxygen Saturation (%) 98 Last Documented: On 02/06/2023 1:10PM ; [facility] Results Includes: Results discussed during this encounter No Results Recorded For Specified Dates History of Present Illness Includes: History of Present Illness from this encounter KARELY CLARKE is a 62 year old male. - Allergy list reviewed - Medication reconciliation performed - Medication list reviewed - Feeling fine [...] - No skin symptoms The patient is 62years old male, presents today for checkup. He has lost 50pounds since last visit. He denies any acute concern today. He denies any chest pain, cough, or sob. He denies any bowel and bladder incontinence. He takes sound sleep at night. Overall, he is doing well. He has a history of iatrogenic Testicular failure. He has been following up with the urologist. He reports that his testosterone level is under normal range now. He is taking Tlando 112.5mg, 2tabs, BID. He admits taking Cialis occasionally. He has a history of hypertension. His blood pressure is elevated at 150/78 in the office today. He reports he getting around 140s systolic number at home. He reports he had episodes of headaches yesterday which improved after taking some rest. Social History Description Last Updated Tobacco non-user 03/12/2022 Last Documented On 3 1:03PM ; [facility] Smoking status : Never smoker 12/30/2017 Last Documented On 3 1:03PM ; [facility] No caffeine use 07/13/2017 Last Documented On 3 1:03PM ; [facility] Not a current smoker 07/13/2017 Last Documented On 3 1:03PM ; [facility] Not using drugs 07/13/2017 Last Documented On 3 1:03PM ; [facility] Exercising erratically 02/22/2015 Last Documented On 3 1:03PM ; [facility] Not using alcohol 02/22/2015 Last Documented On 3 1:03PM ; [facility] Social history unchanged 02/22/2015 Last Documented On 3 1:03PM ; [facility] Procedures and Surgical History Includes: Procedures from this encounter Procedures Code Diagnosis Performing Provider Service L ocation Service Date standardized depression screening: negative for symptoms [id number] Last Documented On 3 1:03PM ; [facility] screening for adult depression: impressi on and score 0 Last Documented On 3 1:03PM ; [facility] Medical History Includes: Medical History addressed during this encounter Description Last Updated History of colonoscopy fiberoptic was pe rformed 05/09/2015 03/12/2022 Last Documented On 3 1:03PM ; [facility] VASECTOMY 2000 ~BILATERAL CATARACT 2003 03/07/2020 Last Documented On 3 1:03PM ; [facility] Family History Includes: Family History addressed during this encounter Description Last Updated Daughter's history of family history of cancer BREAST CANCER 09/05/2020 Last Documented On 3 1:03PM ; [facility] Family history of heart dise ase MATERNAL SIDE HX ~ FATHER - HEART VALVE REPAIR 5 YEARS AGO. 09/07/2019 Last Documented On 3 1:03PM ; [facility] Family history of hypertension MOTHER DI ED OF STROKE 03/25/2014 Last Documented On 3 1:03PM ; [facility] Family history of cancer 05/19/2012 Last Documented On 3 1:03PM ; [facility] Review of Systems Includes: Review [...] Date Site Reaction(s) Status Source COVID-19 Moderna 4 07/26/2021 Complete (Re ported) Patient Last Documented On 3 1:08PM ; [facility] Allergies Includes: Active Allergies No Known Allergies Encounters Encounter Provider Location Date Check-In Time Check-Out Time Diagnosis CHECK UP ALEXA MARTINEZ MD [facility] 02/07/20 23 12:49PM 1:42PM Organic Sleep Apnea Obstructive Adult,Essential Hypertension Benign,Hypercho lesterolemia,Ia trogenic Testicular Failure Insurance Includes: Active Insurance Policies Plan Name Member ID Group # Subscriber Relationship Effect meghan Dates 1 - [employer] [facility] [id number] VINAY CLARKE Self Clinical Notes Includes: Clinical Notes from this encounter * Progress note Date Encounter Last Documented by 02/06/2023 CHECK UP Last documented on 02/18/2023; 2:09 AM, ALEXA MARTINEZ MD; [facility] Active Problems & Conditions - Essential Hypertension Benign - Hypercholesterolemia - Iatrogenic Testicular Failure - Male Erectile Disorder - Organic Sleep Apnea Obstructive Adult - using cpap [facility] Chief Complaint The Chief Complaint is: Ckup- Needing new CPAP machine, his old one is not working at all. Goes through [facility] in [place]. Also would like to review labs from 02/01. History of Present Illness VINAY CLARKE is a 62 year old male. - Allergy list reviewed - Medication reconciliation performed - Medication list reviewed - Feeling fine [...] - No skin symptoms The patient is 62years old male, presents today for checkup. He has lost 50pounds since last visit. He denies any acute concern today. He denies any chest pain, cough, or sob. He denies any bowel and bladder incontinence. He takes sound sleep at night. Overall, he is doing well. He has a history of iatrogenic Testicular failure. He has been following up with the urologist. He reports that his testosterone level is under normal range now. He is taking Tlando 112.5mg, 2tabs, BID. He admits taking Cialis occasionally. He has a history of hypertension. His blood pressure is elevated at 150/78 in the office today. He reports he getting around 140s systolic number at home. He reports he had episodes of headaches yesterday which improved after taking some rest. Current Medication - Atorvastatin Calcium 20 MG [...] No dizziness. Physical Findings - Vitals taken 02/06/2023 01:03 pm BP-Sitting L 150/78 mmHg 100 - 120/60 - 80 BP Cuff Size Large Pulse Rate-Sitting 52 bpm 50 - 100 Pulse Rhythm Regular Height 66 in 64 - 74 Weight 203 lbs 123 - 215 Body Mass Index 32.8 kg/m2 Body Surface Area 2 m2 Oxygen Saturation 98 % 93 - 100 General Appearance: - [...] testicular failure [E89.5 - Postprocedural testicular hypofunction] Vaccinations - COVID-19 Moderna Dose #4 Status: Prev Hist Date: 07/26/2021 Discussed The patient presents today for checkup. I reviewed and updated her current medication regimen. He complaint with his current medication regimen and taking it with efficacy. Hypertension- Advised him to monitor blood pressure at home. report back if blood pressure is persistently elevated. I suspect his old C-pap machine is broken. Will order new c-pap machine for him today. The patient understands and agrees with the plan. Plan StartCited - Obstructive sleep apnea (adult) (pediatric) Outside Supplies: CPAP MACHINE, CPAP SUPPLIES EndCited StartCited - Other PHY ORDER/COMMENT WE NEED TO GET DR [facility] AT [place] WHO IS FOLLOWING PSA AND TESTOSTERONE EndCited Other Mica Alvarado scribing the following documents on behalf of Anderson Lopez MD. Practice Management Standardized depression screening: negative for symptoms and for adult impression and score 0. Health Reminders - Assess Blood Pressure satisfied 02/06/2023. - Assess BMI satisfied 02/06/2023. - Assess Need for CT Lung Screen satisfied 03/12/2022. - Assess Tobacco Use satisfied 03/12/2022. - Colorectal Cancer Screening satisfied 05/09/2015. - Depression Screening satisfied 02/06/2023. - Follow up plan for Depression Screening satisfied 02/06/2023.
== END 2024-11-04 10:30 | disposition home or self-care (01) ==
PROVIDERS: Emergency Provider Registered Nurse; PCP Family Medicine
DX: J01.40 Acute pansinusitis, unspecified (principal); I10 Essential (primary) hypertension; E78.5 Hyperlipidemia, unspecified
CPT/HCPCS: 87880; 99213; G0463

== ENCOUNTER 2025-05-31 08:20 | Emergency (ER) | payer OTHER, SELFPAY ==
--- NOTE | 2025-05-31 08:23 | ED.NECK ---
HPI - Neck Pain/Injury General Chief Complaint: Neck Pain/Injury Stated Complaint: neck & Shoulder pain left side Source: patient, RN notes reviewed and old records reviewed Mode of arrival: ambulatory Limitations: no limitations History of Present Illness HPI Narrative: 64 year old male presents to [facility] with complaints of 3 week duration of left neck pain which radiates to the posterior shoulder region with no pain down his left arm. Patient reports that he did go on a 6 [address] bus trip down to [place] prior to pain occurring. Patient reports that he knows of no specific injury to his neck or upper back. Patient has been taking some Ibuprofen for his discomfort. Patient has full ROM of his arms, and of his neck with some discomfort with turning neck to left side.Patient reports no tingling or numbness down his left arm or radiation of down his left arm. MD complaint: neck pain (left) and upper back pain (upper left posterior shoulder area) Onset (ago): week(s) (3) Severity scale (1-10): 4 Treatments prior to arrival: ibuprofen Related Data Home Medications ?Medication ?Instructions ?Recorded ?Confirmed ?Last Taken ?Type atorvastatin 20 mg tablet mg 11/04/24 Unknown History hydrochlorothiazide 25 mg tablet mg 11/04/24 Unknown History metoprolol succinate 100 mg mg PO 11/04/24 Unknown History tablet,extended release 24 hr olmesartan 40 mg tablet mg 11/04/24 Unknown History testosterone cypionate 200 mg/mL mg 11/04/24 Unknown History intramuscular oil semaglutide 1 mg/dose (4 mg/3 mL) mg subcut 05/31/25 Unknown History subcutaneous pen injector (Ozempic) Allergies Allergy/AdvReac Type Severity Reaction Status Date / Time No Known Allergies Allergy Verified 05/31/25 08:31 Review of Systems Review of Systems: CONSTITUTIONAL: Denies fever, chills, or sweats. EYES: Denies visual changes, redness, or discharge. ENT: Denies rhinorrhea, congestion, sore throat, or otalgia. CARDIOVASCULAR: Denies chest pain, palpitations, or edema. RESPIRATORY: Denies cough or dyspnea. GASTROINTESTINAL: Denies abdominal pain, nausea, vomiting, or diarrhea. GENITOURINARY: Denies dysuria or hematuria. SKIN: Denies rash or itching. MUSCULOSKELETAL: Denies back pain, positive for left neck pain and pain to the posterior aspect of his left shoulder, or myalgia. NEUROLOGIC: Denies headache, numbness, or weakness. PSYCHIATRIC: Denies anxiety or depression. All systems reviewed & are unremarkable except as noted in HPI and below PMFSH Past Medical History Medical History Hyperlipidemia Hypertension Surgical History Surgical History No history of previous surgery Family History Family History Other Acute myocardial infarction Heart disease Hypertension Social History Social History Smoking status: Never smoker Alcohol intake: current Alcohol use details: social Substance use type: does not use Living arrangements: with family Gender identity (if verbalized by the patient): Male Comments At time of signature, agree with nursing past medical, surgical, social and family history. There is no relevant family history pertinent to the presenting complaint Exam Narrative: GENERAL: Well-appearing, well-nourished, and in no acute distress. HEAD: Normocephalic, atraumatic. EYES: PERRLA and EOMI. ENT: Nares clear, no rhinorrhea or epistaxis. Mucous membranes moist. NECK: Supple. no lymphadenopathy CHEST: Clear to auscultation. No respiratory distress. SAO2 98% on room air HEART: Regular rate and rhythm. No murmur heard. Normal peripheral pulses. ABDOMEN: Soft, nontender, nondistended, normal active bowel sounds. EXTREMITIES: Normal range of motion. No edema pain to the left neck and posterior left shoulder. Circulation sensation and mobility intact denies any tingling or numbness down arms or pain down arms, strong pulses bilaterally. SKIN: Warm, dry, no rash. NEURO: No focal deficits. Alert and oriented x3. Course Course Emergency Course: Patient is aware of diagnosis, understands and agrees to treatment plan.? Anticipatory guidance given.? Patient agrees to follow-up as directed and is aware of reasons to seek care at the emergency department. Portions of this record may have been created with voice recognition software Level of Care: Express Care Visit Vital Signs Vital signs: Vital Signs Temperature 36.4 C L 05/31/25 08:26 Pulse Rate 77 10/13/25 08:26 Respiratory Rate 20 05/31/25 08:26 Blood Pressure 182/94 H 05/31/25 08:26 Pulse Oximetry 98 05/31/25 08:26 Oxygen Delivery Room Air 05/31/25 08:26 Temperature 36.4 C L 05/31/25 08:26 Pulse Rate 77 05/31/25 08:26 Respiratory Rate 20 05/31/25 08:26 Blood Pressure 182/94 H 05/31/25 08:26 Pulse Oximetry 98 05/31/25 08:26 Oxygen Delivery Room Air 05/31/25 08:26 Reviewed MDM - Neck Pain/Injury Differential Diagnosis Differential diagnosis: Likely disc disorder of cervical region, strain of neck muscle and other (levator scapulae muscle strain, posterior left shoulder and neck pain) Medical Records Attestation: I reviewed the patient's medical records. Critical Care Time Critical Care Time Critical Care Time: No Discharge Plan Discharge Clinical Impression: Neck pain Strain of left levator scapulae muscle Qualifiers: Encounter type: initial encounter Qualified Code(s): S46.812A - Strain of other muscles, fascia and tendons at shoulder and upper arm level, left arm, initial encounter Patient Disposition: Home Condition: Stable Instructions: Prednisone (By mouth), Neck Pain (ED) Additional Instructions: Ice and heat to the area for 20-30 minutes Gentle stretching exercises Gentle massage Caution with lifting, bending, stooping, twisting Avoid pushing, pulling take muscle relaxants as directed--caution drowsiness and no driving or alcohol, take only at bedtime Anti-inflammatory medicine as directed--take with food recommend Ibuprofen 600 mg 3 times daily with food He may take the muscle relaxant and anti-inflammatory at the same time Follow-up with your PCP if not improving in 5-7 days If your symptoms persist, change or worsen significantly before you can contact your personal physician then please, without delay, go to the emergency department for further evaluation. Follow-up with PCP in 7-10 days or sooner if needed Follow up with PCP soon in regards to your blood pressure which is elevated above threshold for referral. Blood pressure above 120/80 may indicate pre-hypertension.182/94 May use topical ointment to area with Lidocaine such as benGay Patient Language: Kazakh Prescriptions: New prednisone 20 mg tablet 40 mg PO DAILY 5 Days Qty: 10 0RF Rx Instructions: take with food, recommend taking in morning cyclobenzaprine 10 mg tablet 10 mg PO HS Qty: 14 0RF No Action atorvastatin 20 mg tablet metoprolol succinate 100 mg tablet extended release 24 hr PO hydrochlorothiazide 25 mg tablet testosterone cypionate 200 mg/mL oil olmesartan 40 mg tablet Ozempic 1 mg/dose (4 mg/3 mL) pen injector SUBCUT Follow-up/Referrals: PHYSICIAN NOT ON STAFF,NONSTAFF [Primary Care Provider] Time of Disposition: 08:46 Quality [place] Coma Scale Eyes: Open Verbal: Oriented and Alert Motor: Follows Commands [place] Coma Total Score: 15
[2025-05-31 08:26] VITALS: BP 182/94; PULSE 77; RESP 20; TEMP 36.4; O2SAT 98
--- OUTSIDE RECORDS SUMMARY | 2025-05-31 08:29 | XMS_ITS | Clinical Summary ---
Author Organization [address] Address [address] [place] [address] [address]th [place] [id number] Care Team Providers Care Architectural Model Maker Name Role Phone Dylan Harrell MD Primary Care Provider + Allergies No known active allergies Medications atorvastatin (LIPITOR) 20 mg tabletIndications :Mixed hyperlipidemia Take 1 tablet (20 mg total) by mouth daily 025 Active hydroCHLOROthiazi de (HYDRODIURIL) 25 mg tabletIndications :Primary hypertension Take 1 tablet (25 mg total) by mouth daily 025 Active olmesartan (BENICAR) 40 mg tabletIndications :Primary hypertension Take 1 tablet (40 mg total) by mouth daily 025 Active metoprolol XL (TOPROL-XL) 100 mg 24 hr tabletIndications :Primary hypertension Take 2 tablets (200 mg total) by mouth daily 025 Active testosterone cypionate (DEPO-TESTOTERONE ) 200 mg/mL injectionIndicati ons:Hypogonadism in male Inject 0.5 mL (100 mg total) into the muscle as instructed every 7 days 025 Active BD Luer-Peewee Syringe 3 mL 21 gauge x 1 1/2 syringeIndication s:Hypogonadism in male 1 (ONE) SYRINGE WEEKLY 025 Active BD SafetyGlide Needle 18 gauge x 1 1/2 needleIndications :Hypogonadism in male 1 (ONE) NEEDLE, DISPOSABLE WEEKLY, USE TO DRAW UP MEDICATION. DO NOT USE TO INJECT 025 Active tadalafiL (ADCIRCA) 10 mg tabletIndications :Mixed hyperlipidemia Take 1 tablet (10 mg total) by mouth daily as needed for erectile dysfunction Active semaglutide (OZEMPIC) 1 mg/dose (4 mg/3 mL) pen injector injection Inject 1 mg under the skin every 7 days 9 mL 025 Active semaglutide (Ozempic) 0.25 mg or 0.5 mg (2 mg/3 mL) pen injector injection INJECT 0.5MG UNDER THE SKIN EVERY 7 DAYS 3 mL 025 2024 Discontinued Active Problems Problem Noted Date Diagnosed Date Class 1 obesity due to exces s calories with serious comorbidity and body mass index (BMI) of 32.0 to 32.9 in adult 12/21/2024 Encounter for weight management 12/21/2024 Assessment & Plan (05/17/2025 11:19 AM CDT): Primary hypertension 11/18/2024 Assessment & Plan (05/17/2025 11:19 AM CDT): Orders: Comprehensive metabolic panel; Future Erectile dysfunction 11/18/2024 Hypogonadism in male 11/18/2024 Mixed hyperlipidemia 11/18/2024 Assessment & Plan (05/17/2025 11:19 AM CDT): Orders: Lipid panel; Future Encounters Date Type Department Care Team Description 05/27/2025 4:40 PM CDT [facility] - Outpatient Center at [address] [address] Hyponatremia 05/26/2025 8:10 AM CDT [facility] Out[facility] - Outpatient Center at [address] [address] Hyponatremia 05/24/2025 8:20 AM CDT [facility] Outpatient Lab - Outpatient Center at [address] [address] Screening for diabetes mellitus (DM); Screening for thyroid disorder; Mixed hyperlipidemia; Primary hypertension; Localized swelling of both lower extremities 05/24/2025 Results Follow-Up [facility] Primary Care at [address] [place] [id number] Dylan Harrell MD Hemoglobin A1c, Thyroid Function [place], Lipid panel, Additional followed-up results: 4 05/17/2025 8:15 AM CDT Office Visit [facility] Primary Care at [address] [phone] Dylan Harrell MD Encounter for immunization (Primary Dx); Encounter for weight management; Localized swelling of both lower extremities; Primary hypertension; Mixed hyperlipidemia; Screening for thyroid disorder; Screening for diabetes mellitus (DM); Screen for colon cancer from Last 3 Months Immunizations Immunization Administration Dates Next Due Influenza, Quadrivalent, Spl it, Preservative Free, Intramuscular 06/30/2018 Influenza, Trivalent, Preservative Free, Intramu scular 05/17/2025 ZOSTER Recombinant 05/17/2025,11/18/2024 Social History Tobacco Use Types Packs/Day Years Used Date Smoking Tobacco: Never Tobacco Cessation:Counseling Given: Not Answered PHQ-2 Answer Date Recorded PHQ-2 Total Score (If total score is 3 or more points, staff should administer the PHQ-9) 0 05/17/2025 PHQ-9 Answer Date Recorded PHQ-9 Total Score 0 05/17/2025 Sex and Gender Information Value Date Recorded Sex Assigned at Not on file Legal Sex Male 10:01 AM HUMAN RESOURCES OPERATIONS COORDINATOR Gender Identity Not on file Sexual Orientation Not on file Obstetrics History Last Filed Vital Signs Vital Sign Reading Time Taken Comments Blood Pressure 132/76 05/17/2025 8:18 AM CDT Pulse 66 05/17/2025 8:18 AM CDT Temperature 37.1 C (98.7 F) 05/17/2025 8:18 AM CDT Respiratory Rate 16 05/17/2025 8:18 AM CDT Oxygen Saturation 98% 05/17/2025 8:18 AM CDT Inhaled Oxygen Concentration - - Weight 93 kg (205 lb) 05/17/2025 8:18 AM CDT Height 172.7 cm (5' 8) 05/17/2025 8:18 AM CDT Body Mass Index 31.17 05/17/2025 8:18 AM CDT Plan of Treatment Health Maintenance Due Date Last Done Comments Colon Cancer Screening-Colonoscopy 1962 Hepatitis C Screening 1962 Prostate Cancer Screening-PSA 1962 DTaP/Tdap/Td Vaccine (1 - Tdap) 1973 Hepatitis B Screening 1980 Covid-19 Vaccine ( season) 2025 07/26/2021, 06/26/2021, 10/17/2020, Additional history exists Regular Well Visit/Exam 18-64 11/18/2025 11/18/2024 Depression Screening 05/17/2026 05/17/2025, 12/21/2024, 11/18/2024 Influenza Vaccine Completed 05/17/2025, 06/30/2018 Zoster Vaccine Completed 05/17/2025, 11/18/2024 Pneumococcal vaccine <65 Aged Out No longer eligible based on patient's age to complete this topic Procedures Procedure Name Priority Date/Time Associated Diagnosis Comments VOLUME AND PERIOD, URINE, 24 HOUR Routine 05/27/2025 4:34 PM CDT Hyponatremia SODIUM, URINE, 24 HOUR RESULT Routine 05/27/2025 4:34 PM CDT Hyponatremia SODIUM, URINE, 24 HOUR Routine 05/27/2025 4:34 PM CDT Hyponatremia EGFR Routine 05/26/2025 8:10 AM CDT Hyponatremia BASIC METABOLIC PANEL Routine 05/26/2025 8:10 AM CDT Hyponatremia OSMOLALITY, BLOOD Routine 05/26/2025 8:1 0 AM CDT Hyponatremia OSMOLALITY, URINE Routine 05/26/2025 8:1 0 AM CDT Hyponatremia EGFR Routine 05/24/2025 8:40 AM CDT Primary hypertension D-DIMER, QUANTITATIVE Routine 05/24/2025 8:40 AM CDT Localized swelling of both lower extremities PRO B-TYPE NATRIURETIC PEPTIDE Routine 05/24/2025 8:40 AM CDT Localized swelling of both lower extremities COMPREHENSIVE METABOLIC PANEL Routine 05/24/2025 8:40 AM CDT Primary hypertension LIPID PANEL Routine 05/24/2025 8:40 AM CDT Mixed hyperlipidemia THYROID FUNCTION CASCADE Routine 05/24/2025 8:40 AM CDT Screening for thyroid disorder HEMOGLOBIN A1C Routine 05/24/2025 8:40 AM CDT Screening for diabetes mellitus (DM) from Last 3 Months Results * Volume and period, urine, 24 hour (05/27/2025 4:34 PM CDT) Volume, ur 3,200 mL Comment:Testing performed by : [address] [address] Period, Urine Collection 1,440 min [facility] Comment:Testing performed by : [address] [address] Urine 05/27/2025 4:34 PM CDT 05/27/2025 7:38 PM CDT Dylan Harrell MD LAB URINE ORDERABLES Fin al Result Performing Organization Address City/[facility]/ZIP Co de Phone Number [address] [place] [address] * Sodium, urine, 24 hour (05/27/2025 4:34 PM CDT) Sodium, 24 hr ur 141 40 - 220 mmol/24H Comment:Testing performed by : [address] [address] Urine 05/27/2025 4:34 PM CDT 05/27/2025 7:38 PM CDT Dylan Harrell MD LAB URINE ORDERABLES Fin al Result Performing Organization Address City/[facility]/ZIP Co de Phone Number [place] [phone] [facility] [place] [address] * eGFR (05/26/2025 8:10 AM CDT) eGFR >90 >=60 mL/min/1. 73 m2 Comment: Interpretive Data Reference Interval Normal >/= 90 mL/min/1.73m2 Mildly decreased* 60 - 89 mL/min/1.73m2 Mildly to moderately decreased 45 - 59 mL/min/1.73m2 Moderately to severely decreased 30 - 44 mL/min/1.73m2 Severely decreased 15 - 29 mL/min/1.73m2 Kidney Failure < 15 mL/min/1.73m2 *Relative to young adult level Estimated glomerular filtration rate is determined by the 2020 CKD-EPI equation recommended by the National Kidney Foundation (A Unifying Approach to GFR Estimation: Recommendations of the NKF-ASK Task Force on Reassessing the Inclusion of Race in Diagnosing Kidney Disease, JASN 2020). The CKD-EPI equation should not be used for patients with unstable renal function and has not been validated in children and those over 70. Current interpretive data was last reviewed 2021. Testing performed by: [facility], [address] [place] [address]., [address] Blood 05/26/2025 8:10 AM CDT 05/26/2025 1:01 PM CDT Dylan Harrell MD LAB BLOOD ORDERABLES Fin al Result Performing Organization Address City/[facility] Co de Phone Number [place] [address] [address] Department [place] [address] * Osmolality, urine (05/26/2025 8:10 AM CDT) Osmo, ur 294 mOsm/kg Comment:Testing performed by : [facility], [address] [place] [address]., [address] Urine 05/26/2025 8:10 AM CDT 05/26/2025 4:13 PM CDT Dylan Harrell MD LAB URINE ORDERABLES Fin al Result [place] [address] [address] Department [place] [address] * (ABNORMAL) Osmolality, blood (05/26/2025 8:10 AM CDT) Pathologist [facility] Osmo 272(L) 275 - 300 mOsm/kg Comment:Testing performed by : [facility], [address] [place]., [address] Blood 05/26/2025 8:10 AM CDT 05/26/2025 4:13 PM CDT us Dylan Harrell MD LAB BLOOD ORDERABLES Fin al Result [place] [address] Department [place] [address] * (ABNORMAL) Basic metabolic panel (05/26/2025 8:10 AM CDT) [facility] Sodium 131(L) 135 - 145 mmol/L Comment:Testing performed by : [address] [address] Potassium, pl 5.0(H) 3.3 - 4.9 mmol/L [facility] Comment:Testing performed by : [address] [address] Chloride 89(L) 97 - 110 mmol/L [facility] Comment:Testing performed by : [address], [address] CO2 31 22 - 32 mmol/L [facility] Comment:Testing performed by : [address], [address] Anion gap 11 2 - 15 mmol/L [facility] Comment:Testing performed by : [address], [address] BUN 15 6 - 25 mg/dL [facility] Comment:Testing performed by : [address], [address] Creatinine 0.87 0.80 - 1.30 mg/dL [facility] Comment:Testing performed by : [address], [address] Glucose 96 70 - 199 mg/dL [facility] ALMONTE Comment: Interpretive Data Fasting glucose >/= 126 mg/dl is diagnostic for diabetes. Fasting is defined as no caloric intake for at least 8 hours. Fasting glucose between 100 mg/dl to 125 mg/dl is diagnostic of prediabetes. In a patient with classic symptoms of hyperglycemia or hyperglycemic crisis, a random glucose >/= 200 mg/dl is diagnostic for diabetes. In the absence of unequivocal hyperglycemia, results should be confirmed by repeat testing. The classification and Diagnosis of Diabetes Diabetes Care 202; 46: S19-S40. Current interpretive data was last revised 2022. Testing performed by: [facility], [address] [place] [address]., [address] Calcium 10.8(H) 8.5 - 10.3 mg/dL CHARLES Comment:Testing performed by : [facility], [address] [place] [address]., [address] Blood 05/26/2025 8:10 AM CDT 05/26/2025 12:43 PM CDT us Dylan Harrell MD LAB BLOOD ORDERABLES Fin al Result CHARLES [address] Department [place] [address] * eGFR (05/24/2025 8:40 AM CDT) eGFR >90 >=60 mL/min/1. 73 m2 Comment: Interpretive Data Reference Interval Normal >/= 90 mL/min/1.73m2 Mildly decreased* 60 - 89 mL/min/1.73m2 Mildly to moderately decreased 45 - 59 mL/min/1.73m2 Moderately to severely decreased 30 - 44 mL/min/1.73m2 Severely decreased 15 - 29 mL/min/1.73m2 Kidney Failure < 15 mL/min/1.73m2 *Relative to young adult level Estimated glomerular filtration rate is determined by the 2020 CKD-EPI equation recommended by the National Kidney Foundation (A Unifying Approach to GFR Estimation: Recommendations of the NKF-ASK Task Force on Reassessing the Inclusion of Race in Diagnosing Kidney Disease, JASN 2020). The CKD-EPI equation should not be used for patients with unstable renal function and has not been validated in children and those over 70. Current interpretive data was last reviewed 2021. Testing performed by: [facility], [address] [place] [address]., [address] Blood 05/24/2025 8:40 AM CDT 05/24/2025 2:27 PM CDT us Dylan Harrell MD LAB BLOOD ORDERABLES Fin al Result CHARLES [address] [facility] Department [place] [address] * Pro B-type natriuretic peptide (05/24/2025 8:40 AM CDT) NT-proBNP <36 <=300 pg/mL Comment: Interpretive Comments: A. Dyspnea in Acute Care Setting All Ages: < 300 pg/ml, acute heart failure unlikely. < 50 yrs: 300 - 450 pg/ml, further investigation warranted. > 450 pg/ml, acute heart failure likely. 50 - 74 yrs: 300 - 900 pg/ml, further investigation warranted. > 900 pg/ml, acute heart failure likely . > or = 75 yrs: 450 - 1800 pg/ml, further investigation warranted. > 1800 pg/ml, acute heart failure likely. B. Non-acute Setting < 75 yrs < 125 pg/ml, rules out heart failure. > or = 125 pg/ml, further investigation warranted. > or = 75 yrs < 450 pg/ml, rules out heart failure. > or = 450 pg/ml, further investigation warranted. - Knowledge of each individual patient's NT-proBNP range may be more useful than using similar cut-points for every patient. Please note that marked elevations in NT-proBNP levels may be observed in state other than Left Ventricular Congestive Failure, including: acute coronary syndromes, right heart strain/failure (including pulmonary embolism and cor pulmonale), critical illness, renal failure, as well as advanced age. - References: 1. Chang BERG et.al. Eur Heart J. 2006:27:330-337. 2. Lizette RW, Sindhu AM. J. AM Rylee Cardiol: Cardiovasc Imag. 2009;2: 216- 225. Interpretive Data Last Revised Date: 2018. Testing performed by: [facility], [address] [place] [address]., [address] Blood 05/24/2025 8:40 AM CDT 05/24/2025 2:12 PM CDT Dylan Harrell MD LAB BLOOD ORDERABLES Fin al Result Performing Organization Address [facility] Co de Phone Number CHARLES [address] [facility] [place] [address] * Thyroid Function [place] (05/24/2025 8:40 AM CDT) TSH 1.73 0.30 - 4.20 mcIUnit/mL Comment:Testing performed by : [facility], [address] [place] [address]., [address] Blood 05/24/2025 8:40 AM CDT 05/24/2025 2:12 PM CDT Dylan Harrell MD LAB BLOOD ORDERABLES Fin al Result Performing Organization Address [facility] de Phone Number CHARLES [address] [facility] [place] [address] * D-dimer, quantitative (05/24/2025 8:40 AM CDT) D-Dimer 323 <=499 ng/mL FEU Comment: Interpretive data FDA approved the D-dimer, in conjunction with a low or moderate pretest probability score, to exclude venous thromboembolic events (VTE) (PE and DVT) in outpatients when the D-dimer result is < 500 ng/ml FEU. Evidence supports using an age-adjusted D-dimer cut-off for outpatients older than 50 (age x 10) to improve specificity without sacrificing sensitivity. Example: age 68, VTE cut-off 680 ng/ml FEU. References; Lorna HT et al. Brit Med J. 2013;346:f2492. Jamila et al. Annals Int Med. 2015;163:701-11. Current interpretive data was last revised on 2019. Testing performed by: [address] [address] Blood 05/24/2025 8:40 AM CDT 05/24/2025 2:38 PM CDT Dylan Harrell MD LAB BLOOD ORDERABLES Fin al Result Performing Organization Address [facility] de Phone Number [place] [phone] [facility] [place] [address] * Hemoglobin A1c (05/24/2025 8:40 AM CDT) Hgb A1C 5.2 4.0 - 5.6 % Comment:Testing performed by : [address] [address] Estimated Average Glucose 103 mg/dL [facility] Comment: The ADA recommends reporting an estimated Average Glucose (eAG) with all Hemoglobin A1c results using the equation derived from a study of 507 normal and diabetic adults. Minority populations were underrepresented and children were not included. (Diabetes Care 31:5239-4372, 2008). The eAG is not equivalent to a fasting glucose. Testing performed by: [address] [address] Blood 05/24/2025 8:40 AM CDT 05/24/2025 2:12 PM CDT Dylan Harrell MD LAB BLOOD ORDERABLES Fin al Result Performing Organization Address [facility] de Phone Number [facility] [address] [facility] Department [place] [address] * Lipid panel (05/24/2025 8:40 AM CDT) Cholesterol 146 30 - 199 mg/dL Comment: Interpretive Data Ages < or = 19 years Acceptable: <170 mg/dL Borderline high: 170-199 mg/dL High: >or= 200 mg/dL Ages > or = 20 years Desirable: <200 mg/dL Borderline high: 200-239 mg/dL High: >or= 240 mg/dL Literature References: 1. Expert Panel on Integrated Guidelines for Cardiovascular Health and Risk Reduction in Children and Adolescents. Pediatrics 2011;128:S213 2. NCEP Expert Panel. Circulation 2004;110:227 Current Interpretive Data was last revised on 2018. Testing performed by: [facility], [address] [place] [address]., [address] Triglycerides 87 <=149 mg/dL CHARLES Comment: Interpretive Data Ages < or = 9 years Acceptable: <75 mg/dL Borderline high: 75-99 mg/dL High: >or= 100 mg/dL Ages 10 to 20 years Acceptable: <90 mg/dL Borderline high: 90-129 mg/dL High: >or= 130 mg/dL Ages > or = 20 years Desirable: <150 mg/dL Borderline high: 150-199 mg/dL High: 200-499 mg/dL Very high: >or= 499 mg/dL Literature References: 1. Expert Panel on Integrated Guidelines for Cardiovascular Health and Risk Reduction in Children and Adolescents. Pediatrics 2011;128:S213 2. NCEP Expert Panel. Circulation 2004;110:227 Current Interpretive Data was last revised on 2018. Testing performed by: [facility], [address] [place] [address]., [address] HDL 57 >=40 mg/dL CHARLES Comment: Interpretive Data Ages < or = 19 years Acceptable: >45 mg/dL Borderline low: 40-45 mg/dL Low: <40 mg/dL Ages > or = 20 years Desirable: >or= 60 mg/dL Low: <40 mg/dL Literature References: 1. Expert Panel on Integrated Guidelines for Cardiovascular Health and Risk Reduction in Children and Adolescents. Pediatrics 2011;128:S213 2. NCEP Expert Panel. Circulation 2004;110:227 Current Interpretive Data was last revised on 2018. Testing performed by: [facility], [address] [place] [address]., [address] LDL, calculated 73 <=129 mg/dL CHARLES Comment: Interpretive Data Ages < or = 19 years Acceptable: <110 mg/dL Borderline high: 110-129 mg/dL High: >or= 130 mg/dL Ages > or = 20 years Optimal: <100 mg/dL Near optimal: 100-129 mg/dL Borderline high: 130-159 mg/dL High: >160 mg/dL Calculated using the Ovi LDL-C estimating equation. This equation was implemented on 2024. Prior to this date LDL-C was estimated using the Friedewald equation. Literature References: 1. Expert Panel on Integrated Guidelines for Cardiovascular Health and Risk Reduction in Children and Adolescents. Pediatrics 2011;128:S213 2. NCEP Expert Panel. Circulation 2004;110:227 3. Ovi M et al. SNEHA Cardiol. 2019December 17;5(5):540-548. doi: 10.1001/jamacardio.2020.0013 Current Interpretive Data was last revised on 2024. Testing performed by: [address] [address] Non-HDL Cholesterol 89 mg/dL CHARLES ALMONTE Comment: Interpretive Data Ages < or = 19 years Acceptable: <120 mg/dL Borderline high: 120-144 mg/dL High: >145 mg/dL Ages > or = 20 years When triglycerides are >200 mg/dL, Non-HDL cholesterol is a secondary target of therapy with treatment goals that are 30 mg/dL greater than the LDL cholesterol target. Literature References: 1. Expert Panel on Integrated Guidelines for Cardiovascular Health and Risk Reduction in Children and Adolescents. Pediatrics 2011;128:S213 2. NCEP Expert Panel. Circulation 2004;110:227 Current Interpretive Data was last revised on 2018. Testing performed by: [address] [address] Chol/HDL ratio 3 CHARLES ALMONTE Comment:Testing performed by : [address] [address] Blood 05/24/2025 8:40 AM CDT 05/24/2025 2:12 PM CDT us Dylan Harrell MD LAB BLOOD ORDERABLES Fin al Result CHARLES ALMONTE [id number] [place] [address] Department [place] [address] * (ABNORMAL) Comprehensive metabolic panel (05/24/2025 8:40 AM CDT) [facility] Sodium 129(L) 135 - 145 mmol/L Comment:Testing performed by : [facility], [address] [place] [address]., [address] Potassium, pl 4.6 3.3 - 4.9 mmol/L [facility] Comment:Testing performed by : [address] [address] Chloride 89(L) 97 - 110 mmol/L [facility] Comment:Testing performed by : [address] [address] CO2 29 22 - 32 mmol/L [facility] Comment:Testing performed by : [facility], [address] [place] [address], [address] Anion gap 11 2 - 15 mmol/L [facility] Comment:Testing performed by : [facility], [address] [place] [address], [address] BUN 12 6 - 25 mg/dL [facility] Comment:Testing performed by : [address], [address] Creatinine 0.84 0.80 - 1.30 mg/dL [facility] Comment:Testing performed by : [address], [address] Glucose 99 70 - 199 mg/dL [facility] Comment: Interpretive Data Fasting glucose >/= 126 mg/dl is diagnostic for diabetes. Fasting is defined as no caloric intake for at least 8 hours. Fasting glucose between 100 mg/dl to 125 mg/dl is diagnostic of prediabetes. In a patient with classic symptoms of hyperglycemia or hyperglycemic crisis, a random glucose >/= 200 mg/dl is diagnostic for diabetes. In the absence of unequivocal hyperglycemia, results should be confirmed by repeat testing. The classification and Diagnosis of Diabetes Diabetes Care 2021; 46: S19-S40. Current interpretive data was last revised 2022. Testing performed by: [facility], [address] [place] [address]., [address] Calcium 9.6 8.5 - 10.3 mg/dL [facility] Comment:Testing performed by : [address] [address] Bilirubin, total 0.5 0.1 - 1.2 mg/dL [facility] Comment:Testing performed by : [address] [address] Protein, pl 7.0 6.5 - 8.5 g/dL [facility] Comment:Testing performed by : [facility], [address] [place] [address]., [address] Albumin 4.4 3.5 - 5.0 g/dL [facility] Comment:Testing performed by : [address] [address] Alk phos 58 40 - 130 Units/L [facility] Comment:Testing performed by : [address], [address] ALT 21 7 - 55 Units/L [facility] Comment:Testing performed by : [address], [address] AST 27 10 - 50 Units/L [facility] Comment:Testing performed by : [address], [address] Blood 05/24/2025 8:40 AM CDT 05/24/2025 2:12 PM CDT Dylan Harrell MD LAB BLOOD ORDERABLES [facility] al Result [address] Department [place] [address] from Last 3 Months Insurance [facility] Care Teams Architectural Model Maker Relationship Specialty Start Date End Date Dylan Harrell MD [address] [facility] [address] [place] [address] PCP - General Family Medicine 11/18/24
--- OUTSIDE RECORDS SUMMARY | 2025-05-31 08:29 | XMS_ITS | Encounter Summary ---
Author Organization [facility] Healthcare Address [address] [place] [id number] Care Team Providers Care Strategic Planning Specialist Name Role Phone Dylan Harrell MD Primary Care Provider + Encounter Details Date Type Department Care Team (Late st Contact Info) Description 05/24/2025 Results Follow-Up [facility] Primary Care at [address] [place] [address] Dylan Harrell MD [address] [place] [address] [address] [place] [address] Hemoglobin A1c, Thyroid Function [place], Lipid panel, Additional followed-up results: 4 Social History Tobacco Use Types Packs/Day Years Used Date Smoking Tobacco: Never PHQ-2 Answer Date Recorded PHQ-2 Total Score (If total score is 3 or more points, staff should administer the PHQ-9) 0 05/17/2025 PHQ-9 Answer Date Recorded PHQ-9 Total Score 0 05/17/2025 Sex and Gender Information Value Date Recorded Sex Assigned at Not on file Legal 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 documented in this encounter Plan of Treatment Not on file documented as of this encounter Results * Osmolality, urine (05/26/2025 8:10 AM CDT) Pathologist [facility] Osmo, ur 294 mOsm/kg Comment:Testing performed by : [facility], [address] [place]., [address] Urine 05/26/2025 8:10 AM CDT 05/26/2025 4:13 PM CDT Dylan Harrell MD LAB URINE ORDERABLES Fin al Result Performing Organization Address [facility] Co de Phone Number CHARLES [phone] [place] [address] * (ABNORMAL) Osmolality, blood (05/26/2025 8:10 AM CDT) [facility] Osmo 272(L) 275 - 300 mOsm/kg Comment:Testing performed by : [facility], [address] [place] [address]., [id number] Blood 05/26/2025 8:10 AM CDT 05/26/2025 4:13 PM CDT Dylan Harrell MD LAB BLOOD ORDERABLES Fin al Result Performing Organization Address [facility] de Phone Number CHARLES [phone] [address] [place] [address] * (ABNORMAL) Basic metabolic panel (05/26/2025 8:10 AM CDT) [facility] Sodium 131(L) 135 - 145 mmol/L Comment:Testing performed by : [facility], [address] [place] [address]., [id number] Potassium, pl 5.0(H) 3.3 - 4.9 mmol/L [facility]ERNER Comment:Testing performed by : [address] [address] Chloride 89(L) 97 - 110 mmol/L [facility] Comment:Testing performed by : [address] [address] CO2 31 22 - 32 mmol/L [facility] Comment:Testing performed by : [address] [address] Anion gap 11 2 - 15 mmol/L [facility] Comment:Testing performed by : [address], [address] BUN 15 6 - 25 mg/dL [facility] Comment:Testing performed by : [address] [address] Creatinine 0.87 0.80 - 1.30 mg/dL CHARLES Comment:Testing performed by : [address] [address] Glucose 96 70 - 199 mg/dL [facility] Comment: Interpretive Data Fasting glucose >/= 126 [...] was last revised 2022. Testing performed by: [address] [address] Calcium 10.8(H) 8.5 - 10.3 mg/dL [facility] Comment:Testing performed by : [address] [address] Blood 05/26/2025 8:10 AM CDT 05/26/2025 12:43 PM CDT us Dylan Harerll MD LAB BLOOD ORDERABLES Fin al Result [address] [place] [address] documented in this encounter Visit Diagnoses Diagnosis Hyponatremia- Primary Hyposmolality and/or hyponatremia documented in this encounter Care Teams Strategic Planning Specialist Relationship Specialty Start Date End Date Dylan Harrell MD [address] [address] PCP - General Family Medicine 11/18/24 documented as of this encounter
== END 2025-05-31 08:50 | disposition home or self-care (01) ==
PROVIDERS: Emergency Provider Registered Nurse
DX: M54.2 Cervicalgia (principal); S46.912A Strain of unspecified muscle, fascia and tendon at shoulder and upper arm level, left arm, initial encounter; X58.XXXA Exposure to other specified factors, initial encounter; I10 Essential (primary) hypertension; E78.5 Hyperlipidemia, unspecified
CPT/HCPCS: 99213; G0463